=== PATIENT | female | born 1950 | race Caucasian/White ===

== ENCOUNTER 2023-11-27 14:01 | Inpatient (IN) | payer MEDICARE, BC, SELFPAY ==
[2023-11-27] VITALS (10 sets, daily range): BP systolic 93–150; BP diastolic 59–95; BMI 29.0; BMI 27.1
--- NOTE | 2023-11-27 11:12 | ED.GENMED ---
History of Present Illness
General
Chief Complaint: Breathing Problem
Time Seen by Provider: 11/27/23 11:12
Travel History
Have you had any contact with someone who has COVID-19?: No
Do you have any symptoms of coronavirus? Fever > 100 degrees, chills, cough, shortness of breath, sore throat, loss of taste or smell, muscle aches, or headache?: No
History of Present Illness
History of Present Illness:
HPI: The patient presents with shortness of breath. She is chronically on oxygen. Her lung doctor for interstitial lung disease is at [facility] who states that steroids and nebs would not work for her. She has had somewhat of a cough. Her symptoms
worsened with exertion today. She has no significant chest discomfort other than perhaps a tingling sensation. The patient states that she is slowly put on about 3 pounds since last admission. She has a history of PAD but no history of DVT/PE.
EXAM:
GENERAL: The patient is wearing nasal cannula and appears somewhat chronically ill
HEENT: Moist oral mucosa
CARDIOVASCULAR: No murmurs, normal heart rate and rhythm, No chest wall tenderness
PULMONARY: Very mild respiratory distress with only minimal conversational dyspnea on oxygen, diffuse rales heard however when I had the patient get up and walk around she had much more shortness of breath
ABDOMEN: Soft with no peritoneal signs, no tenderness
NEUROLOGIC: Excellent strength all extremities, no coordination deficits
PSYCHIATRIC: Appropriate mental status, normal insight and judgement
EXTREMITIES: Nontender, no edema, moves all extremities equally
SKIN: No rash, no lesions
ED COURSE:
11:40 AM: I initially evaluated patient
NUMBER AND COMPLEXITY OF PROBLEMS ADDRESSED AT THE ENCOUNTER
� Chronic conditions affecting care: CHF, high blood pressure, interstitial lung disease/chronic bronchitis, CKD
� Acute Exacerbation and/or Progression of Chronic Illness: This is a acutely worsened problem on top of chronic disease
� Differential Diagnosis includes: Exacerbation of ILD, exacerbation of heart failure, pneumonia/viral syndrome
AMOUNT AND/OR COMPLEXITY OF DATA TO BE REVIEWED AND ANALYZED
� I performed an independent evaluation of and my interpretation is:
EKG: Sinus 86, normal axis, nonspecific ST abnormality, no significant change from October 14, 2023
CT:
X-rays: I personally viewed x-ray is consistent with ILD
Laboratory Studies: White count slightly elevated 11.5, hemoglobin normal at 12.8, creatinine is 1.2, BNP is 7890, COVID-negative, flu negative, troponin 0.026
Other:
� Review of other/old records: The patient was admitted here just over a month ago. The patient has a history of interstitial lung disease on chronic oxygen (4 L/min during the day and 3 L/min at night). BNP on 10/14/2023 was
8280. I reviewed cardiology notes from 10/17/2023 ([facility])�her notes indicate that the patient was 'seen for syncope and ILD managed at [facility], was diagnosed with heart failure last year, acute on chronic HFpEF, was getting Lasix 40 mg IV daily'
� Clinical information was obtained by an independent historian: Family at bedside
� Prescriptions/Medications Considered but not given:
� Further testing considered but not performed:
RISK OF COMPLICATIONS AND/OR MORBIDITY OR MORTALITY OF PATIENT MANAGEMENT
� Social determinants of health affecting care: Lives at home on chronic oxygen
� Discussion with other providers: Hospitalist for admission at 12:35 PM
� Escalation of care including admission/observation vs risk of discharge considered: The patient does have history of ILD as well as HFpEF. BNP chronically markedly elevated. There is been a 3 pound weight gain since last
admission however there is no significant lower extremity edema. Will try IV diuretic. Family states that the patient has not had much urine output since yesterday. Will hold off on CTA for evaluation of PE as she does have renal insufficiency
chronically with decreased urine output and I did order diuresis here by IV. When I had the patient walk around on 4 L/min of oxygen she desatted to 88%, felt dizzy and had a general unwell appearance.
Phy Exam
Physical Exam
Physical Exam:
See HPI
Scores
Heart Failure Risk
Heart Failure Risk Score: Not Applicable
Course
Orders/Labs/Results
Orders:
Orders
11/27/23 11:18
Electrocardiogram (*1) Urgent
Reason for Study: Shortness of Breath
EKG- Treatment ONCE
11/27/23 11:19
CXR2 [CR Chest - 2 Views ] Urgent
Comment:
Reason For Exam: SOB
11/27/23 11:20
BNP [NT-proBNP] Urgent
Complete Blood Count/With Diff Urgent
Comprehensive Metabolic Panel Urgent
Troponin I Urgent
11/27/23 11:29
COVID-19 Antigen Urgent
Source: Nasal Swab
Influenza A+B Rapid Molecular Urgent
[facility] Source: Nasal Swab
Specimen Description:
11/27/23 12:36
Furosemide [Lasix] 40 mg IV NOW STA
Abnormal Lab Results
11/27/23
11:20
WBC 11.5 H 10^3/uL
(4.8-10.8)
MCH 26.0 L pg
(27.0-31.0)
MCHC 31.8 L g/dL
(33.0-37.0)
RDW 16.2 H %
(11.5-14.5)
MPV 11.3 H fL
(7.4-10.4)
Absolute Neuts (auto) 7.3 H 10^3/uL
(1.4-6.5)
Absolute Monos (auto) 0.9 H 10^3/uL
(0.1-0.6)
Absolute Eos (auto) 1.0 H 10^3/uL
(0-0.7)
Lymphocytes % 19.2 L %
(20.5-51.1)
Eosinophils % 8.7 H %
(0-6)
BUN 21 H mg/dl
(7-17)
Creatinine 1.2 H mg/dL
(0.6-1.0)
Glucose 104 H mg/dl
(70-99)
AST 40 H U/L
(14-36)
11/27/23 11:20
11/27/23 11:20
Vital Signs
Initial and Last Documented VS:
Initial Vital Signs
Pulse Ox
78
11/27/23 11:12
Last Documented Vital Signs
Temp Pulse Resp BP Pulse Ox
97.8 F 96 20 135/79 96
11/27/23 11:13 11/27/23 11:13 11/27/23 11:13 11/27/23 11:13 11/27/23 11:15
*Critical Care Note
Total Time (30-74mins, 75-104mins- exclusive of procedures): Not Applicable
ED Attending Note
-
Portions of this chart may have been created with voice recognition software.� Occasional wrong word or��sound alike� substitutions may have occurred due to the inherent limitations of voice recognition software.
Discharge Plan
Departure
Patient Disposition: Admit
Date of Disposition: 11/27/23
Time of Disposition: 12:36
Presentation/result/management discussed w/ accepting MD/DO: Hospitalist
Discharge Problem:
Interstitial lung disease
Prescriptions:
No Action
atorvastatin 40 mg Tablet
40 mg PO HS
clopidogrel 75 mg Tablet
75 mg PO DAILY@1500
acetaminophen [Tylenol Extra Strength] 500 mg Tablet
1,000 mg PO BIDPRN PRN (Reason: mild pain)
pantoprazole 40 mg Tablet,Delayed Release (Dr/Ec)
40 mg PO BID
albuterol sulfate 90 mcg/actuation Hfa Aerosol Inhaler
2 puff INHALATION R Q6HPRN PRN (Reason: wheezing)
escitalopram oxalate 10 mg Tablet
10 mg PO DAILY@1500
cholecalciferol (vitamin D3) 25 mcg (1,000 unit) Tablet
25 mcg PO DAILY@1500
fluticasone furoate-vilanterol [Breo Ellipta] 100-25 mcg/dose Blister With Device
1 inh INHALATION R DAILY
Ofev 100 mg Capsule
100 mg PO BID
furosemide 20 mg Tablet
40 mg PO DAILY@1500 Qty: 30 1RF
Referrals:
Dequan Boothe DO [Family Provider] -
Interventions
Interventions:
*Risk Screen - Suicide Last Done: 11/27/23 11:14
*General Assessment Last Done: 11/27/23 11:14
*Neglect/Abuse Screening Last Done: 11/27/23 11:14
ED- Fall Risk Assessment Last Done: 11/27/23 11:12
*ED COVID-19 Vaccine History Last Done: 11/27/23 11:14
ED- Cardiac Assessment Last Done: 11/27/23 11:15
ED- Pulmonary Assessment Last Done: 11/27/23 11:15
[2023-11-27 11:35] LABS: % Basophils 0.8 % (0-2); % Eosinophils 8.7 % (0-6); % Immature Granulocytes 0.3 % (0-0.5); % Lymphocytes 19.2 % (20.5-51.1); % Monocytes 7.4 % (1.7-9.3); % Neutrophils 63.6 % (42.2-75.2); Absolute Basophils 0.1 10^3/uL (0-0.2); Absolute Lymphocytes 2.2 10^3/uL (1.2-3.4); Absolute Monocytes 0.9 10^3/uL (0.1-0.6); Absolute Neutrophils 7.3 10^3/uL (1.4-6.5); Hematocrit 40.3 % (37.0-47.0); Hemoglobin 12.8 g/dL (12.0-16.0); Mean Corp Hgb Conc. 31.8 g/dL (33.0-37.0); Mean Corpuscular Volume 81.7 fL (81.0-99.0); Mean Platelet Volume 11.3 fL (7.4-10.4); Nucleated Red Blood Cells % 0 %; Platelet Count 333 10^3/uL (130-400); Red Blood Cell Count 4.93 10^6/uL (4.20-5.40); Red Cell Dist. Width 16.2 % (11.5-14.5); White Blood Cell Count 11.5 10^3/uL (4.8-10.8)
[2023-11-27 11:49] LABS: ALT (SGPT) 23 U/L (0-35); AST (SGOT) 40 U/L (14-36); Alkaline Phosphatase 72 U/L (38-126); Blood Urea Nitrogen 21 mg/dl (7-17); Calcium 9.2 mg/dl (8.4-10.2); Carbon Dioxide 26 mmol/L (22-30); Chloride 99 mmol/L (98-107); Estimated Creatinine Clearance 38 ml/min; Glucose 104 mg/dl (70-99); Potassium 3.5 mmol/L (3.5-5.1); Sodium 135 mmol/L (135-145); Total Bilirubin 1.3 mg/dl (0.2-1.3); Total Protein 6.8 g/dl (6.3-8.2); eGFR 47.21
[2023-11-27 11:52] LABS: COVID-19 Antigen Negative (Negative)
[2023-11-27 11:58] LABS: NT-proBNP 7890 pg/ml; Troponin I 0.026 ng/ml
[2023-11-27] MEDS: LASIX 40 MG IV (13:07)
--- NOTE | 2023-11-27 13:18 | HPS.HSE ---
Family Physician
-
Family Physician: Dequan Boothe
Chief Complaint
-
SOB with exertion
History of Present Illness
73 y/o F hx of chronic HFpEF, Labile HTN, CKD 3a, O2 dependant ILD, PAD, HLD presents to the ER with shortness of breath. Patient reports being discharged from 1 month ago for CHF admission. She initially felt good and was able to ambulate on
3-4L and did not have significant exertional SOB. In the 7 to 10 days, she reports worsening exercise tolerance to the point of significant SOB with minimal activity. She also is using 4-5L consistently. No associated chest pain with exertion, no
palpitations. She reports 1 fever last week attributed to a viral illness which self-resolved. Other complaints include intermittent loose stools, vomiting and heartburn which she attributes to OFEV for ILD.
In ER, patient with significant SOB on exertion, with findings of acute CHF, given IV Lasix x 1. Patient requesting Pulm eval.
Medical History
Past Medical History
Past Medical History: Reports Other (hronic HFpEF, Labile HTN, CKD 3a, O2 dependant ILD, PAD, HLD)
Past Surgical History: Reports Cardiac
Social History
Tobacco: Former Smoker
Alcohol: None
Drug: None
Personal:
Living: With Family
Family History
Family History: CAD and Cancer
Allergies / Home Medications
Allergies reflects when Allergies were last updated in [facility].
Home Medications with original date entered in [facility]
Allergy/Medication List:
Allergies
Allergy/AdvReac Type Severity Reaction Status Date / Time
adhesive tape Allergy Rash Verified 11/27/23 11:05
Sulfa (Sulfonamide Allergy Rash Verified 11/27/23 11:05
Antibiotics)
Home Medications
acetaminophen 500 mg tablet (Tylenol Extra Strength) 1,000 mg PO BIDPRN PRN mild pain 10/14/23
albuterol sulfate 90 mcg/actuation aerosol inhaler 2 puff inhalation R Q6HPRN PRN wheezing 10/14/23
atorvastatin 40 mg tablet 40 mg PO QPM High Cholesterol 10/14/23
cholecalciferol (vitamin D3) 25 mcg (1,000 unit) tablet 25 mcg PO QPM Supplement 10/14/23
clopidogrel 75 mg tablet 75 mg PO QPM Blood Clot Prevention/Tx 10/14/23
escitalopram oxalate 10 mg tablet 10 mg PO QPM Mental Health 10/14/23
fluticasone furoate 100 mcg-vilanterol 25 mcg/dose inhalation powder (Breo Ellipta) 1 inh inhalation R DAILY Lung/Breathing Issues 10/14/23
nintedanib 100 mg capsule (Ofev) 100 mg PO BID Lung/Breathing Issues 10/14/23
pantoprazole 40 mg tablet,delayed release 40 mg PO BID Gastrointestinal Issue 10/14/23
furosemide 20 mg tablet 20 mg PO BID Fluid Retention/Swelling 11/27/23
Review of Systems
-
A 12 point ROS was completed and negative except as noted: Yes
Physical Exam
Vital Signs
Vital Signs
Temp Pulse Resp BP Pulse Ox
97.8 F 99 13 135/79 86
11/27/23 11:13 11/27/23 13:00 11/27/23 13:00 11/27/23 11:13 11/27/23 13:00
Physical Exam
General: No Apparent Distress and Appears Chronically Ill
HEENT: NormoCephalic and Anicteric
Respiratory: Rales; No Wheezes or Rhonchi
Cardiac: S1/S2 and Regular Rhythm
GI: Soft
Musculoskeletal: No Edema
Neuro: AO x 3
Psych: Calm
Laboratory Results
-
11/27/23 11:20
11/27/23 11:20
Laboratory Results
Total Bilirubin 1.3 mg/dl (0.2-1.3) 11/27/23 11:20
AST 40 U/L (14-36) H 11/27/23 11:20
ALT 23 U/L (0-35) 11/27/23 11:20
Alkaline Phosphatase 72 U/L (38-126) 11/27/23 11:20
Troponin I 0.026 ng/ml 11/27/23 11:20
Data Reviewed
-
Lab Data: Labs Reviewed by me
Impression/Plan
-
Assessment:
Acute on chronic hypoxic respiratory failure
- baseline 3-4L, currently on 5L NC
- wean O2 as treatment plan evolves
Acute on chronic HFpEF
- multiple recent admissions
- s/p IV Lasix in ER - requires intensive monitoring
Echo 09/26/23: [place] study, EF 55-60%, aortic sclerosis without stenosis, mild MR, RV moderately dilated and mildly reduced RV systolic function, mild to mod pulmonic regurgitation and mild to mod TR, small localized pericardial effusion without
hemodynamic compromise
- [facility] cardiology consulted
Heartburn intermittent nausea/vomiting in setting of OFEV
- abd exam benign
- continue PPI
- prn Carafate
Hx of Essential HTN, with labile HTN
CKD stage 3a
- monitor Cr as diuresis evolves
ILD - O2 dependant
- on OFEV
- wants to establish care with pulmonary at . consult placed
PAD
HLD
- statin/Plavix
DVT ppx: SC Heparin
Code: Full
--- NOTE | 2023-11-27 13:41 | CM ---
CM reviewed medical records. CM met with patient and in room. Patient confirmed demographics. Patient lives in a single floor ranch style home. with stairs to enter. Patient denies history of VN or SNF. Patient relies on a single point cane
for ambulation outside of the home. Patient has home oxygen through [employer] (formerly [employer]) and has [employer] concentrators for portability. Patient uses [facility] for medication services. Patient is active with her PCP.
Patient would be agree[facility] to [facility]. Referral sent via [facility].
PLAN: Home with VN.
--- NOTE | 2023-11-27 14:46 | CON.CAR ---
Addendum entered and electronically signed by Kelly Stuart MD 11/27/23 16:43:
I saw and examined the patient.
The Barber Tool Sharpener's note was reviewed and I agree with the note.
Comment: Spoke with the patient and her at great length. Although her weight did not go up 3 pounds in 1 day or 5 pounds in a week it is at least 10 pounds increased over the past month overall. She does have some increased sodium in her
diet but they try hard. She is volume overloaded with heart failure with preserved ejection fraction acute on chronic in the setting of interstitial lung disease and mild chronic kidney disease. She is diuresing well with IV Lasix and we will
continue.
-Continue IV diuretic
-Continue to monitor electrolytes and renal function
-Monitor input/output and daily weights. Goal to diurese 10 pounds.
-Check echocardiogram (last at [facility] 09/2023)
-She is agreeable to SGLT2 inhibitor we will look at cost
-No chest pain noted. No prior ischemic assessment.
-Interstitial lung disease per primary service and pulmonary.
-Continue lipid-lowering for PVD.
Original Note:
Consultation
Consultation Request
Date/Time Consultation Requested: 11/27/2023
Date/Time Consultation Performed: 11/27/2023 at 1430
Requesting Provider: Dr. Hamilton
Performing Provider: Dr. Kelly Stuart
Reason for Consultation: CHF
Medical History
-
History of Present Illness:
HPI: Bre is a 73 year old female with PMH of chronic HFpEF, CKD, ILD on chronic O2, PAD, HLD, and PAD who presented to [facility] for evaluation of worsening shortness of breath. She reports a week or so ago she had a viral illness and since that
time, she has noted a slow, steady increase in her SOB and oxygen requirements. She typically is on 3-4L, however has increased to 4-5 L and she has not even been able to walk short distances without becoming short of breath. Her helps her
around the house and they have been eating a lot of heat up meals, however states they use heart healthy meals that are lower in sodium. She also was drinking Powerade, but after speaking to cardiology office, they discontinued this. She reports she
has been following her weight at home and her weight has gone up approximately 10lbs over the past month. Her prior dry weight was 138 lbs and she has now been weighing closer to 148 at home. She states over the past few days she has not had any
significant urine output after taking her usual 20mg of lasix in AM and PM. In ER, she was found to have evidence of acute heart failure on exam and by chest xray and labs. She was started on IV lasix and has had good urine output. She has been
admitted for further management and cardiology consulted for evaluation.
PMH:
Chronic HFpEF
CKD 3a
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
PAD
HTN
Hyperlipidemia
PAD
aorta bypass and fem-pop bypass 05/21/90
aorto-fem bypass and fasciotomy 02/2010
aorto-fem and fem-fem bypass 01/08/13
removal of infected left axillary graft 01/25/13
Chronic Plavix therapy
Past Medical History
Past Medical History: Other (In HPI)
Past Surgical History: Appendectomy, Tonsilectomy and Other (aortic bypass 05/21/90, aorto-femoral bypass 02/2010, fem pop bypass 1989, fasciotomy 2009, aorto-femoral and fem-fem bypass 01/08/13)
Social History
Tobacco: Former Smoker
Alcohol: None
Drug: None
Personal:
Living: With Family
Employment: Retired
Family History
Family History: CAD and Cancer
Allergies / Home Medications
Allergy/AdvReac Type Severity Reaction Status Date / Time
adhesive tape Allergy Rash Verified 11/27/23 11:05
Sulfa (Sulfonamide Allergy Rash Verified 11/27/23 11:05
Antibiotics)
Medication Instructions Recorded Confirmed Type
acetaminophen 500 mg tablet 1,000 mg PO BIDPRN PRN mild pain 10/14/23 11/27/23 History
(Tylenol Extra Strength)
albuterol sulfate 90 mcg/actuation 2 puff inhalation R Q6HPRN PRN 10/14/23 11/27/23 History
aerosol inhaler wheezing
atorvastatin 40 mg tablet 40 mg PO QPM High Cholesterol 10/14/23 11/27/23 History
cholecalciferol (vitamin D3) 25 25 mcg PO QPM Supplement 10/14/23 11/27/23 History
mcg (1,000 unit) tablet
clopidogrel 75 mg tablet 75 mg PO QPM Blood Clot 10/14/23 11/27/23 History
Prevention/Tx
escitalopram oxalate 10 mg tablet 10 mg PO QPM Mental Health 10/14/23 11/27/23 History
fluticasone furoate 100 1 inh inhalation R DAILY 10/14/23 11/27/23 History
mcg-vilanterol 25 mcg/dose Lung/Breathing Issues
inhalation powder (Breo Ellipta)
nintedanib 100 mg capsule (Ofev) 100 mg PO BID Lung/Breathing Issues 10/14/23 11/27/23 History
pantoprazole 40 mg tablet,delayed 40 mg PO BID Gastrointestinal Issue 10/14/23 11/27/23 History
release
furosemide 20 mg tablet 20 mg PO BID Fluid 11/27/23 11/27/23 History
Retention/Swelling
Review of Systems
-
History Source: Patient and Family ( at bedside)
All other systems: Negative unless noted
Physical Exam
Vital Signs
Temp Pulse Resp BP Pulse Ox
97.8 F 85 21 129/81 92
11/27/23 11:13 11/27/23 14:15 11/27/23 14:15 11/27/23 14:00 11/27/23 14:15
Lab Results
11/27/23 11:20
11/27/23 11:20
Troponin I 0.026 ng/ml 11/27/23 11:20
Dfo-A-Jzhcefnvenv Pept 7890 pg/ml 11/27/23 11:20
Physical Exam
General: Well Developed, Well Nourished and No Apparent Distress
HEENT: Normocephalic, Anicteric and Moist Mucous Membranes
Respiratory: Wheezes, Crackles and Non Labored Respirations
Cardiac: S1/S2 and Regular Rhythm
Musculoskeletal: No Clubbing, No Cyanosis and No Edema
Skin: Warm and Dry
Neuro: AO x 3 and Nonfocal/Grossly Intact
Psych: Calm
Impression / Plan
-
PCP: Dequan Boothe at [facility] [phone]
Farm Management Teacher: Dr. Vidal
Impression:
Presented with SOB, weight gain
Acute on chronic HFpEF
CKD 3a
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
PAD
HTN
Hyperlipidemia
PAD
aorta bypass and fem-pop bypass 05/21/90
aorto-fem bypass and fasciotomy 02/2010
aorto-fem and fem-fem bypass 01/08/13
removal of infected left axillary graft 01/25/13
Chronic Plavix therapy
Echo 09/26/23: [facility] study, EF 55-60%, aortic sclerosis without stenosis, mild MR, RV moderately dilated and mildly reduced RV systolic function, mild to mod pulmonic regurgitation and mild to mod TR, small localized pericardial effusion without
hemodynamic compromise
Echo 11/27/2023: study pending
Plan:
-Presented with worsening shortness of breath over the past week with increased O2 requirements.
-Weight at home is up at least 10lbs from prior dry weight of 138lbs.
-Creat up slightly to 1.2, continue to follow with diuresis.
-Follow daily weights, I&Os.
-She has history of labile BPs per her report and previously needed to stop losartan.
-Will ask CM to assess cost of Jard[facility].
-EKG reviewed and stable from prior in SR with HR 86 BPM.
-Troponin detectable at 0.026. No chest pain. Previously patient has declined stress testing.
-Echo 09/26/2023 with preserved EF as noted above. Will repeat while admitted.
-On 4L NC. Chronically on 3-4L. Pulmonology evaluation requested by primary service.
-K 3.5. Replete and check mag.
-Continue plavix and lipitor.
HPI: Bre is a 73 year old female with PMH of chronic HFpEF, CKD, ILD on chronic O2, PAD, HLD, and PAD who presented to [facility] for evaluation of worsening shortness of breath. She reports a week or so ago she had a viral illness and since that
time, she has noted a slow, steady increase in her SOB and oxygen requirements. She typically is on 3-4L, however has increased to 4-5 L and she has not even been able to walk short distances without becoming short of breath. Her helps her
around the house and they have been eating a lot of heat up meals, however states they use heart healthy meals that are lower in sodium. She also was drinking Powerade, but after speaking to cardiology office, they discontinued this. She reports she
has been following her weight at home and her weight has gone up approximately 10lbs over the past month. Her prior dry weight was 138 lbs and she has now been weighing closer to 148 at home. She states over the past few days she has not had any
significant urine output after taking her usual 20mg of lasix in AM and PM. In ER, she was found to have evidence of acute heart failure on exam and by chest xray and labs. She was started on IV lasix and has had good urine output. She has been
admitted for further management and cardiology consulted for evaluation.
Data Reviewed
-
EKG: Tracing Personally Visualized and interpreted
Radiology: Report Reviewed by me
Labs: Labs Reviewed by me
Old Records: Reviewed
--- NOTE | 2023-11-27 14:56 | CON.PUL ---
Consultation
Consultation Request
Date/Time Consultation Requested: 11/27/23
Date/Time Consultation Performed: 11/27/23
Performing Provider: Дмитрий
Reason for Consultation: ILD
Medical History
-
History of Present Illness:
Patient is a 73 year old F with h/o chronic HFpEF, Labile HTN, CKD 3a, O2 dependant ILD, PAD, HLD presents to the ER with shortness of breath. Patient reports being discharged from [facility] 1 month ago for CHF admission. Had been doing well post
discharge but notes change in the past 7-10 days. Reports worsening exercise tolerance and higher O2 requirements, 4-5L consistently. No associated chest pain with exertion, no palpitations.
In ER, patient with significant SOB on exertion, with findings of acute CHF, given IV Lasix x 1. Patient requesting Pulmonary eval. She would like to transition to for her care, previously seen by [facility], not on transplant list. She has
been stable on Ofev and had previously been on lower O2 requirements prior to CHF diagnosis.
Past Medical History
Past Medical History: Other (see list below)
Social History
Tobacco: Non-smoker
Alcohol: None
Drug: None
Family History
Family History: Reviewed & Not Pertinent
Allergies / Home Medications
Allergies
Allergy/AdvReac Type Severity Reaction Status Date / Time
adhesive tape Allergy Rash Verified 11/27/23 11:05
Sulfa (Sulfonamide Allergy Rash Verified 11/27/23 11:05
Antibiotics)
Home Medications
Medication Instructions Recorded Confirmed Last Taken Type
acetaminophen 500 mg tablet 1,000 mg PO BIDPRN PRN mild pain 10/14/23 11/27/23 2 Weeks Ago History
(Tylenol Extra Strength) ~09/30/23
albuterol sulfate 90 mcg/actuation 2 puff inhalation R Q6HPRN PRN 10/14/23 11/27/23 10/13/23 History
aerosol inhaler wheezing
atorvastatin 40 mg tablet 40 mg PO QPM High Cholesterol 10/14/23 11/27/23 11/26/23 History
cholecalciferol (vitamin D3) 25 25 mcg PO QPM Supplement 10/14/23 11/27/23 11/26/23 History
mcg (1,000 unit) tablet
clopidogrel 75 mg tablet 75 mg PO QPM Blood Clot 10/14/23 11/27/23 11/26/23 History
Prevention/Tx
escitalopram oxalate 10 mg tablet 10 mg PO QPM Mental Health 10/14/23 11/27/23 11/26/23 History
fluticasone furoate 100 1 inh inhalation R DAILY 10/14/23 11/27/23 11/27/23 History
mcg-vilanterol 25 mcg/dose Lung/Breathing Issues
inhalation powder (Breo Ellipta)
nintedanib 100 mg capsule (Ofev) 100 mg PO BID Lung/Breathing Issues 10/14/23 11/27/23 11/27/23 History
pantoprazole 40 mg tablet,delayed 40 mg PO BID Gastrointestinal Issue 10/14/23 11/27/23 11/27/23 History
release
furosemide 20 mg tablet 20 mg PO BID Fluid 11/27/23 11/27/23 11/27/23 History
Retention/Swelling
Review of Systems
-
History Source: Patient
All other systems: Negative unless noted
Vitals / Labs / Diagnostic Testing
Vital Signs
Temp Pulse Resp BP Pulse Ox
97.8 F 85 21 129/81 92
11/27/23 11:13 11/27/23 14:15 11/27/23 14:15 11/27/23 14:00 11/27/23 14:15
Lab Data
11/27/23 11:20
11/27/23 11:20
Microbiology
11/27/23 11:29 Nasal Swab Influenza Types A & B (MARY) - Final
Negative for Influenza A & B, NAAT
Negative results must be combined with clinical observations
and patient history.
Nucleic Acid Amplification test (NAAT)performed on the
[employer] ID NOW platform.
Diagnostic Testing:
Physical Exam
-
HEENT: Normocephalic, Anicteric and Moist Mucous Membranes
Cardiovascular: S1/S2 and Regular Rhythm
Respiratory: Rales and Non-Labored Respirations
GI: Soft, Non Distended and Non Tender
Neurology: Awake, Alert, Oriented, AO x 3 and No Motor Deficits
Skin: Warm, Dry and Good Color
General: Comfortable and Other (NAD)
Assessment
-
Patient is a 73 year old F with h/o chronic HFpEF, Labile HTN, CKD 3a, O2 dependant ILD, PAD, HLD presents to the ER with shortness of breath. Patient reports being discharged from [facility] 1 month ago for CHF admission. Had been doing well post
discharge but notes change in the past 7-10 days. Reports worsening exercise tolerance and higher O2 requirements, 4-5L consistently. Adm again for [facility] CHF. Patient requesting Pulmonary eval. She would like to transition to for her care,
previously seen by [facility].
[facility], proBNP 7890
Acute on chronic hypoxic respiratory failure
Mild leukocytosis
NEREYDA, creat 1.2 from 1.0
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
Chronic HFpEF
CKD 3a
PAD
Chronic bronchitis�
IPF�on Of
Home O2 use of 3L
Followed at [facility] prior/not on transplant list
HTN
HLD
Vascular disease� �
[facility]: Bypass� � 2012� �
[facility]: bypass s/p hernia repair complications� � 2009� ��
Plan
Hypoxemia noted on arrival, O2 tod 86%, she is placed on 5L
Baseline use of 3L during day, 2L at night (per records)
Prior history of lung disease is noted including IPF on Ofev/had been following at [facility]
Mild ILD disease noted on imaging, no comparisons
Explained to to bring copy of prior CTs from [facility]
Reviewed [facility] records that are available >50 psgs
Suspect patient has underlying CHF
CXR obtained indicating possible CHF superimposed on chronic ILD changes
Other imaging reports reviewed, consistent with IPF
ECHO reports reviewed indicating new RV dysfunction compared to prior testing in 2021
Agree with diuresis
Await cards recs for management
Will need outpatient pulmonary evaluation in our office for PFTs and 6MWT
Reviewed with patient
Transition care from [facility]
No prior PFTs for review, will request records as OP
We will follow
Diagnostic Data
CXR 11/27/23- IMPRESSION: No acute disease of the chest. Stable findings suggesting mild pulmonary fibrosis. Mild cardiomegaly. Stable
10/14/23- Bilateral interstitial opacities suggesting a chronic interstitial lung disease/pulmonary fibrosis versus mild pulmonary vascular congestion.
ECHO at [facility] 02/2022: LV size is normal, EF 50-55%, mild conc LVH, grade I DD. RV size/func normal. mild diffuse thickening of aortic valve
ECHO 09/26/23: normal function EF 55-60%, grade I DD. w/o stenosis, mild MR, RV moderately dilated with mildly reduced systolic function, RVSP 48. Mild-mod NV, mild-mod TR, RA moderately dilated, small localized pericardial effusion
CT chest 09/25/23 - no acute PE; lungs show chronic changes of fibrosis/honeycombing
-----
TT spent in care for this patient including review of testing/discussion with care team/arranging outpatient FU/extensive review of records = 75mins.
[2023-11-27] MEDS: KCL 40 MEQ PO (15:38)
[2023-11-27 16:57] LABS: Magnesium 1.9 mg/dl (1.6-2.3)
--- NOTE | 2023-11-27 17:04 | PTCARENOTE ---
Received patient from ED via stretcher. Assisted to bed. AAOx3. Assessed and oriented to room. +LIU. at bedside. Call tobar in close reach. Will continue to monitor.
[2023-11-27] MEDS: LIPITOR 40 MG PO (17:33)
[2023-11-27] MEDS: LEXAPRO 10 MG PO (17:33)
[2023-11-27] MEDS: PLAVIX 75 MG PO (17:33)
[2023-11-27] MEDS: SYMBICORT 80/4.5 MCG INHALER 2 PUFF INH (19:07)
[2023-11-27] MEDS: HEPARIN 5000 UNITS SC (20:47)
[2023-11-27] MEDS: NON-FORMULARY ITEM 100 MG PO (20:48)
[2023-11-27] MEDS: PROTONIX 40 MG PO (20:48)
[2023-11-28] VITALS (8 sets, daily range): BP systolic 99–159; BP diastolic 62–98; PULSE 86; O2SAT 90; BMI 27.1
[2023-11-28 06:51] LABS: Hematocrit 35.6 % (37.0-47.0); Hemoglobin 11.5 g/dL (12.0-16.0); Mean Corp Hgb Conc. 32.3 g/dL (33.0-37.0); Mean Corpuscular Hgb 26.3 pg (27.0-31.0); Mean Corpuscular Volume 81.5 fL (81.0-99.0); Mean Platelet Volume 11.1 fL (7.4-10.4); Platelet Count 277 10^3/uL (130-400); Red Blood Cell Count 4.37 10^6/uL (4.20-5.40); Red Cell Dist. Width 16.2 % (11.5-14.5); White Blood Cell Count 9.7 10^3/uL (4.8-10.8)
[2023-11-28 07:18] LABS: Blood Urea Nitrogen 25 mg/dl (7-17); Calcium 9.3 mg/dl (8.4-10.2); Carbon Dioxide 27 mmol/L (22-30); Chloride 99 mmol/L (98-107); Estimated Creatinine Clearance 36 ml/min; Glucose 97 mg/dl (70-99); Potassium 3.5 mmol/L (3.5-5.1); Sodium 137 mmol/L (135-145); eGFR 47.21
[2023-11-28] MEDS: SYMBICORT 80/4.5 MCG INHALER 2 PUFF INH ×2 (07:59→20:11)
[2023-11-28] MEDS: NON-FORMULARY ITEM 100 MG PO ×2 (09:16→20:47)
[2023-11-28] MEDS: PROTONIX 40 MG PO ×2 (09:17→20:47)
[2023-11-28] MEDS: LASIX 40 MG IV (09:18)
[2023-11-28] MEDS: HEPARIN 5000 UNITS SC ×2 (09:18→20:46)
[2023-11-28] MEDS: JARDIANCE 10 MG PO (09:18)
--- NOTE | 2023-11-28 09:34 | W.PN.CARDCBS ---
Addendum entered and electronically signed by Pantera Brooke MD 11/28/23 14:16:
I saw and examined the patient.
The Protocol Officer's note was reviewed and I agree with the note.
Comment:
GEN: No distress, awake, Ox3
HEENT: supple, anicteric, mmm
LUNGS: bilat crackles
CV: Reg, S1/S2, 1/6 syst LSB, S4+
ABD: soft, BS+, NT/ND
EXT: TRace edema
NEURO: Gross non-focal
SKIN: No rash
Plan:
Will give an extra 20 mg of IV Lasix today. Continue 40 mg IV daily. Check echo today.
Craeat 1.2
Starting Jardiance today. Replete potassium.
Continue treatment for interstitial lung disease.
BP has been Very labile.
Original Note:
Today's Communication / Plan
-
Continue IV lasix
Check echo
Start Jardiance
Replete K
Impression / Plan
-
PCP: Dequan Boothe at [facility] [phone]
Staking Technician: Dr. Vidal
Impression:
Presented with SOB, weight gain
Acute on chronic HFpEF
CKD 3a
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
PAD
HTN
Hyperlipidemia
PAD
aorta bypass and fem-pop bypass 05/21/90
aorto-fem bypass and fasciotomy 02/2010
aorto-fem and fem-fem bypass 01/08/13
removal of infected left axillary graft 01/25/13
Chronic Plavix therapy
Echo 09/26/23: [place] study, EF 55-60%, aortic sclerosis without stenosis, mild MR, RV moderately dilated and mildly reduced RV systolic function, mild to mod pulmonic regurgitation and mild to mod TR, small localized pericardial effusion without
hemodynamic compromise
Echo 11/28/2023: Study pending
Plan:
-Presented with worsening shortness of breath over the past week with increased O2 requirements.
-Weight at home was up at least 10lbs from prior dry weight of 138lbs. Weight stable overnight at 148lbs, but negative on I&Os.
-Creat stable at 1.2, continue to follow with diuresis.
-Follow daily weights, I&Os.
-She has history of labile BPs which has limited medical therapy. Previously needed to stop losartan.
-Jardiance 10mg daily started and is affordable at $35/month.
-Echo 09/26/2023 with preserved EF as noted above. Repeat echo pending today.
-On 5L NC. Chronically on 3-4L. Pulmonology following for ILD.
-K 3.5. Replete. Mag 1.9
-Continue plavix and lipitor.
HPI: Bre is a 73 year old female with PMH of chronic HFpEF, CKD, ILD on chronic O2, PAD, HLD, and PAD who presented to [facility] for evaluation of worsening shortness of breath. She reports a week or so ago she had a viral illness and since that
time, she has noted a slow, steady increase in her SOB and oxygen requirements. She typically is on 3-4L, however has increased to 4-5 L and she has not even been able to walk short distances without becoming short of breath. Her helps her
around the house and they have been eating a lot of heat up meals, however states they use heart healthy meals that are lower in sodium. She also was drinking Powerade, but after speaking to cardiology office, they discontinued this. She reports she
has been following her weight at home and her weight has gone up approximately 10lbs over the past month. Her prior dry weight was 138 lbs and she has now been weighing closer to 148 at home. She states over the past few days she has not had any
significant urine output after taking her usual 20mg of lasix in AM and PM. In ER, she was found to have evidence of acute heart failure on exam and by chest xray and labs. She was started on IV lasix and has had good urine output. She has been
admitted for further management and cardiology consulted for evaluation.
Progress Note - Staking Technician
Subjective
Date of Service: November 28, 2023
Breathing stable overnight.
Objective
Labs:
11/28/23 06:31
11/28/23 06:31
Labs
Hgb 11.5 g/dL (12.0-16.0) L 11/28/23 06:31
Hct 35.6 % (37.0-47.0) L 11/28/23 06:31
Plt Count 277 10^3/uL (130-400) 11/28/23 06:31
Sodium 137 mmol/L (135-145) 11/28/23 06:31
Potassium 3.5 mmol/L (3.5-5.1) 11/28/23 06:31
BUN 25 mg/dl (7-17) H 11/28/23 06:31
Creatinine 1.2 mg/dL (0.6-1.0) H 11/28/23 06:31
Glucose 97 mg/dl (70-99) 11/28/23 06:31
Troponins
11/27/23
11:20
Troponin I 0.026
Vital Signs and I&O:
Vital Signs
Temp Pulse Resp BP Pulse Ox
98.4 F 88 16 150/96 92
11/28/23 07:55 11/28/23 08:03 11/28/23 08:03 11/28/23 07:55 11/28/23 08:03
Vital Signs
Temp Pulse Resp BP Pulse Ox
98.4 F 88 16 150/96 92
11/28/23 07:55 11/28/23 08:03 11/28/23 08:03 11/28/23 07:55 11/28/23 08:03
Intake & Output
11/26/23 11/27/23 11/28/23 11/29/23
06:59 06:59 06:59 06:59
Intake Total 240 / 240
Output Total 1050 / 1050
Balance -810 / -810
Physical Exam
Physical Exam
GEN: No distress, awake, alert, oriented x3
HEENT: supple, anicteric, mmm
LUNGS: crackles b/l
CV: Reg, S1/S2, no murmur
ABD: soft, BS+, NT/ND
EXT: No clubbing, cyanosis, or edema
NEURO: Gross non-focal
SKIN: Warm, dry, no rash
--- NOTE | 2023-11-28 11:25 | W.PN.HOSP.TC ---
Today's Communication/Plan
-
continue IV Lasix
Assessment / Plan
Assessment / Plan
Assessment:
Acute on chronic hypoxic respiratory failure
- baseline 3-4L, currently on 5L NC
- wean O2 as treatment plan evolves
Acute on chronic HFpEF
- multiple recent admissions
- continue IV Lasix 40mg daily - requires intensive monitoring
Echo 09/26/23: [place] study, EF 55-60%, aortic sclerosis without stenosis, mild MR, RV moderately dilated and mildly reduced RV systolic function, mild to mod pulmonic regurgitation and mild to mod TR, small localized pericardial effusion without
hemodynamic compromise
- [facility] cardiology following
Heartburn intermittent nausea/vomiting in setting of OFEV
- abd exam benign
- continue PPI
- prn Carafate if recurrence
Hx of Essential HTN, with labile HTN
CKD stage 3a
- monitor Cr as diuresis continues
ILD - O2 dependant
- on OFEV
- [facility] following and pt will transition care to their office, outpatient PFTs planned
PAD
HLD
- statin/Plavix
DVT ppx: SC Heparin
Code: Full
Anticipated Discharge: > 48 hours
Subjective/Interval History
-
Date of Service: November 28, 2023
weight stable but reports feeling improved, less sob and with negative I/Os recorded
Objective Data
-
Labs:
Laboratory Results
11/28/23
06:31
WBC 9.7
Hgb 11.5 L
Hct 35.6 L
Plt Count 277
Sodium 137
Potassium 3.5
Chloride 99
Carbon Dioxide 27
BUN 25 H
Creatinine 1.2 H
Glucose 97
Calcium 9.3
Vital Signs:
Vital Signs
Temp Pulse Resp BP Pulse Ox
98.4 F 88 16 150/96 92
11/28/23 07:55 11/28/23 08:03 11/28/23 08:03 11/28/23 07:55 11/28/23 08:03
I&O
11/27/23 11/28/23 11/29/23
06:59 06:59 06:59
Intake Total 240 / 240
Output Total 1050 / 1050
Balance -810 / -810
Physical Exam
-
General: No Apparent Distress
HEENT: Normocephalic
Respiratory: Rales
Cardiac: Regular Rhythm and S1/S2
GI: Soft
Genito-urinary: No Costovertebral Tender
Neuro: AO x 3
Psych: Calm
Data Reviewed
-
Total Time Spent with Patient (in minutes): 51
Labs: Labs Reviewed by me
--- NOTE | 2023-11-28 11:48 | W.PN.PUL3 ---
Today's Communication / Plan
-
Remains on 5L, baseline use of 3--continue to attempt weaning back to baseline
IV diuresis ongoing per cards, repeat echo pending
Encouraged OOB/IS
Not on steroids, resumed on inhalers
Follow daily weights
Assessment
-
Patient is a 73 year old F with h/o chronic HFpEF, Labile HTN, CKD 3a, O2 dependant ILD, PAD, HLD presents to the ER with shortness of breath. Patient reports being discharged from [facility] 1 month ago for CHF admission. Had been doing well post
discharge but notes change in the past 7-10 days. Reports worsening exercise tolerance and higher O2 requirements, 4-5L consistently. Adm again for [facility] CHF. Patient requesting Pulmonary eval. She would like to transition to for her care,
previously seen by [facility].
[facility], proBNP 7890
Acute on chronic hypoxic respiratory failure
Mild leukocytosis
NEREYDA, creat 1.2 from 1.0
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
Chronic HFpEF
CKD 3a
PAD
Chronic bronchitis�
IPF�on Of
Home O2 use of 3L
Followed at [facility] prior/not on transplant list
HTN
HLD
Vascular disease� �
[facility]: Bypass� � 2012� �
[facility]: bypass s/p hernia repair complications� � 2009� ��
Plan
Hypoxemia noted on arrival, O2 tod 86%, she is placed on 5L
Baseline use of 3L during day, 2L at night (per records)
Prior history of lung disease is noted including IPF on Ofev/had been following at [facility]
Mild ILD disease noted on imaging, no comparisons
Explained to to bring copy of prior CTs from [facility]
Reviewed [facility] records that are available >50 psgs
Suspect patient has underlying CHF
CXR obtained indicating possible CHF superimposed on chronic ILD changes
Other imaging reports reviewed, consistent with IPF
ECHO reports reviewed indicating new RV dysfunction compared to prior testing in 2022
Agree with diuresis
Cards following
Repeat echo pending
Will need outpatient pulmonary evaluation in our office for PFTs and 6MWT
Reviewed with patient
Transition care from [facility]
No prior PFTs for review, will request records as OP
Diagnostic Data
CXR 11/27/23- IMPRESSION: No acute disease of the chest. Stable findings suggesting mild pulmonary fibrosis. Mild cardiomegaly. Stable
10/14/23- Bilateral interstitial opacities suggesting a chronic interstitial lung disease/pulmonary fibrosis versus mild pulmonary vascular congestion.
ECHO at [facility] 02/2022: LV size is normal, EF 50-55%, mild conc LVH, grade I DD. RV size/func normal. mild diffuse thickening of aortic valve
ECHO 09/26/23: normal function EF 55-60%, grade I DD. w/o stenosis, mild MR, RV moderately dilated with mildly reduced systolic function, RVSP 48. Mild-mod [place], mild-mod TR, RA moderately dilated, small localized pericardial effusion
CT chest 09/25/23 - no acute PE; lungs show chronic changes of fibrosis/honeycombing
Subjective Data
-
Date of Service:
Date of Service: November 28, 2023
Chief Complaint: Pulmonary Follow Up
Subjective:
patient seen and examined, remains on 5L NC
Feels no worse, not significantly better
no new complaints
Objective Data
Data Reviewed
Vital Signs / I&O / Oxygen:
Vital Signs
Temp Pulse Resp BP Pulse Ox
98.4 F 88 16 150/96 92
11/28/23 07:55 11/28/23 08:03 11/28/23 08:03 11/28/23 07:55 11/28/23 08:03
Intake and Output
11/27/23 11/28/23 11/29/23
06:59 06:59 06:59
Intake Total 240 / 240
Output Total 1050 / 1050 400 / 400
Balance -810 / -810 -400 / -400
SaO2 92
Nasal Cannula flow liters per 5
minute
Physical Exam
General: Comfortable and Other (NAD)
HEENT: Normocephalic, Anicteric and Moist Mucous Membranes
Cardiovascular: S1-S2 and Regular Rhythm
Respiratory: Crackles (bibasilar) and Non-Labored Respirations
GI: Soft, Non Distended and Non Tender
Neurology: Awake, Alert, Oriented, AO x 3 and No Motor Deficits
Skin: Warm, Dry and Good Color
Labs/Micro/Reports
Lab Data
11/28/23 06:31
11/28/23 06:31
Microbiology
11/27/23 11:29 Nasal Swab Influenza Types A & B (MARY) - Final
Negative for Influenza A & B, NAAT
Negative results must be combined with clinical observations
and patient history.
Nucleic Acid Amplification test (NAAT)performed on the
[employer] ID NOW platform.
[2023-11-28] MEDS: KCL 40 MEQ PO (12:51)
[2023-11-28] MEDS: LASIX 20 MG IV (15:32)
[2023-11-28] MEDS: MIRALAX 17 GRAMS PO (15:32)
--- NOTE | 2023-11-28 17:00 | CM ---
Continue IV Lasix .
On oxygen 5 liters POx 94%.
Jardiance magallon obtained via [facility] orders for $35.00.Pt aware.
Bruce supportive.
Pt has home oxygen with [employer].
PLAN Home with [facility]
[2023-11-28] MEDS: LIPITOR 40 MG PO (17:33)
[2023-11-28] MEDS: LEXAPRO 10 MG PO (17:33)
[2023-11-28] MEDS: PLAVIX 75 MG PO (17:33)
[2023-11-29] VITALS (7 sets, daily range): BP systolic 108–161; BP diastolic 70–91; PULSE 94; O2SAT 94; BMI 26.6
[2023-11-29] MEDS: ZOFRAN 4 MG IV (03:50)
[2023-11-29] MEDS: SYMBICORT 80/4.5 MCG INHALER 2 PUFF INH ×2 (07:30→19:46)
[2023-11-29 08:35] LABS: Hematocrit 35.4 % (37.0-47.0); Hemoglobin 11.2 g/dL (12.0-16.0); Mean Corp Hgb Conc. 31.6 g/dL (33.0-37.0); Mean Corpuscular Hgb 26.2 pg (27.0-31.0); Mean Corpuscular Volume 82.9 fL (81.0-99.0); Mean Platelet Volume 11.6 fL (7.4-10.4); Platelet Count 275 10^3/uL (130-400); Red Blood Cell Count 4.27 10^6/uL (4.20-5.40); Red Cell Dist. Width 16.2 % (11.5-14.5); White Blood Cell Count 10.3 10^3/uL (4.8-10.8)
[2023-11-29] MEDS: HEPARIN 5000 UNITS SC ×2 (08:38→19:53)
[2023-11-29] MEDS: PROTONIX 40 MG PO ×2 (08:39→19:55)
[2023-11-29] MEDS: LASIX 40 MG IV (08:39)
[2023-11-29] MEDS: MIRALAX 17 GRAMS PO (08:39)
[2023-11-29] MEDS: FLUSH (NSS) 2 FLUSH IV (08:40)
[2023-11-29] MEDS: JARDIANCE 10 MG PO (08:47)
--- NOTE | 2023-11-29 08:48 | W.PN.HOSP.TC ---
Today's Communication/Plan
-
continue IV diuresis
add bowel regimen
Assessment / Plan
Assessment / Plan
Assessment:
Acute on chronic hypoxic respiratory failure
- baseline 3-4L, currently on 5L NC
- wean O2 as treatment plan evolves
Acute on chronic HFpEF
- multiple recent admissions
- continue IV Lasix 40mg daily - requires intensive monitoring
Echo 09/26/23: [place] study, EF 55-60%, aortic sclerosis without stenosis, mild MR, RV moderately dilated and mildly reduced RV systolic function, mild to mod pulmonic regurgitation and mild to mod TR, small localized pericardial effusion without
hemodynamic compromise
- [facility]ology following
Heartburn intermittent nausea/vomiting in setting of OFEV
- abd exam benign
- continue PPI
- prn Carafate if recurrence
Hx of Essential HTN, with labile HTN
CKD stage 3a
- monitor Cr as diuresis continues
ILD - O2 dependant
- on OFEV
- [facility] following and pt will transition care to their office, outpatient PFTs planned
PAD
HLD
- statin/Plavix
Constipation
- Miralax, Senna/Colace
DVT ppx: SC Heparin
Code: Full
Anticipated Discharge: > 48 hours
Subjective/Interval History
-
Date of Service: November 29, 2023
requesting more bowel meds for lack of BM since Friday
Objective Data
-
Labs:
Laboratory Results
11/29/23
08:18
WBC 10.3
Hgb 11.2 L
Hct 35.4 L
Plt Count 275
Sodium Pending
Potassium Pending
Chloride Pending
Carbon Dioxide Pending
BUN Pending
Creatinine Pending
Glucose Pending
Calcium Pending
Vital Signs:
Vital Signs
Temp Pulse Resp BP Pulse Ox
97.9 F 93 18 108/72 92
11/29/23 08:00 11/29/23 08:39 11/29/23 08:00 11/29/23 08:39 11/29/23 08:00
I&O
11/28/23 11/29/23 11/30/23
06:59 06:59 06:59
Intake Total 240 / 240 1020 / 1020
Output Total 1050 / 1050 2200 / 2200 550 / 550
Balance -810 / -810 -1180 / -1180 -550 / -550
Physical Exam
-
General: No Apparent Distress
HEENT: Normocephalic and Atraumatic
Respiratory: Rales
Cardiac: Regular Rhythm and S1/S2
GI: Soft and Nontender
Neuro: AO x 3
Psych: Calm
Data Reviewed
-
Total Time Spent with Patient (in minutes): 45
Labs: Labs Reviewed by me
[2023-11-29 08:57] LABS: Blood Urea Nitrogen 27 mg/dl (7-17); Calcium 9.2 mg/dl (8.4-10.2); Carbon Dioxide 28 mmol/L (22-30); Chloride 98 mmol/L (98-107); Estimated Creatinine Clearance 33 ml/min; Glucose 100 mg/dl (70-99); Potassium 3.7 mmol/L (3.5-5.1); Sodium 136 mmol/L (135-145); eGFR 42.88
--- NOTE | 2023-11-29 09:22 | W.PN.CARDCBS ---
Addendum entered and electronically signed by Julio Stuart MD 11/29/23 11:19:
Patient seen, interviewed and examined by me.
Sitting in chair, using nasal cannula oxygen, no acute distress at rest
Regular rate and rhythm with normal S1 and S2, no S3 no S4. There is a grade 1/6 apical holosystolic murmur and no rubs. There is RV lift.
Lungs are clear to auscultation bilaterally without wheezes rales or rhonchi.
Abdomen soft nontender nondistended with normoactive bowel sounds
Extremities show trace pretibial edema bilaterally no clubbing or cyanosis.
Neurologic exam is grossly nonfocal.
Agree with advanced practice professionals assessment and plan as noted below
-Continue diuresis.
Weight is down 3 pounds overnight
Creatinine is essentially at her recent baseline.
Discussed with patient and her who is at the bedside. Her most recent echocardiogram is reviewed with her as well.
Original Note:
Today's Communication / Plan
-
Continue diuresis with IV lasix
Follow renal function
Wean O2 to baseline as able.
Impression / Plan
-
PCP: Dequan Boothe at [facility] [phone]
Continuity Editor: Dr. Vidal
Impression:
Presented with SOB, weight gain
Acute on chronic HFpEF
CKD 3a
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
PAD
HTN
Hyperlipidemia
PAD
aorta bypass and fem-pop bypass 05/21/90
aorto-fem bypass and fasciotomy 02/2010
aorto-fem and fem-fem bypass 01/08/13
removal of infected left axillary graft 01/25/13
Chronic Plavix therapy
Echo 09/26/23: [place] study, EF 55-60%, aortic sclerosis without stenosis, mild MR, RV moderately dilated and mildly reduced RV systolic function, mild to mod pulmonic regurgitation and mild to mod TR, small localized pericardial effusion without
hemodynamic compromise
Echo 11/28/2023: EF 55%, mild cLVH, flattened septum in systole and diastole consistent with RV pressure and volume overload, stage II diastolic dysfunction, mild MR, aortic sclerosis without stenosis, mild TR, estimated PAP 35-40 mmHg, small to
moderate pericardial effusion located predominantly around the inferolateral wall with no evidence of chamber collapse.
Plan:
-Presented with worsening shortness of breath over the past week with increased O2 requirements.
-Continue diuresing with IV lasix 40mg daily. Weight down 3lbs overnight to 145lbs. Prior dry weight 138lbs.
-Creat stable at 1.3, continue to follow with diuresis.
-Follow daily weights, I&Os.
-She has history of labile BPs which has limited medical therapy. Previously needed to stop losartan.
-Jardiance 10mg daily started and is affordable at $35/month.
-Echo 11/28/2023 showed EF was preserved with evidence of volume overload, small to moderate pericardial effusion noted.
-On 5L NC. Chronically on 3-4L. Pulmonology following for ILD.
-Continue plavix and lipitor.
HPI: Bre is a 73 year old female with PMH of chronic HFpEF, CKD, ILD on chronic O2, PAD, HLD, and PAD who presented to [facility] for evaluation of worsening shortness of breath. She reports a week or so ago she had a viral illness and since that
time, she has noted a slow, steady increase in her SOB and oxygen requirements. She typically is on 3-4L, however has increased to 4-5 L and she has not even been able to walk short distances without becoming short of breath. Her helps her
around the house and they have been eating a lot of heat up meals, however states they use heart healthy meals that are lower in sodium. She also was drinking Powerade, but after speaking to cardiology office, they discontinued this. She reports she
has been following her weight at home and her weight has gone up approximately 10lbs over the past month. Her prior dry weight was 138 lbs and she has now been weighing closer to 148 at home. She states over the past few days she has not had any
significant urine output after taking her usual 20mg of lasix in AM and PM. In ER, she was found to have evidence of acute heart failure on exam and by chest xray and labs. She was started on IV lasix and has had good urine output. She has been
admitted for further management and cardiology consulted for evaluation.
Progress Note - Continuity Editor
Subjective
Date of Service: November 29, 2023
Breathing feels better. Remains on 5L
Objective
Labs:
11/29/23 08:18
11/29/23 08:18
Labs
Hgb 11.2 g/dL (12.0-16.0) L 11/29/23 08:18
Hct 35.4 % (37.0-47.0) L 11/29/23 08:18
Plt Count 275 10^3/uL (130-400) 11/29/23 08:18
Sodium 136 mmol/L (135-145) 11/29/23 08:18
Potassium 3.7 mmol/L (3.5-5.1) 11/29/23 08:18
BUN 27 mg/dl (7-17) H 11/29/23 08:18
Creatinine 1.3 mg/dL (0.6-1.0) H 11/29/23 08:18
Glucose 100 mg/dl (70-99) H 11/29/23 08:18
Troponins
11/27/23
11:20
Troponin I 0.026
Vital Signs and I&O:
Vital Signs
Temp Pulse Resp BP Pulse Ox
97.9 F 93 18 108/72 92
11/29/23 08:00 11/29/23 08:39 11/29/23 08:00 11/29/23 08:39 11/29/23 08:00
Vital Signs
Temp Pulse Resp BP Pulse Ox
97.9 F 93 18 108/72 92
11/29/23 08:00 11/29/23 08:39 11/29/23 08:00 11/29/23 08:39 11/29/23 08:00
Intake & Output
11/27/23 11/28/23 11/29/23 11/30/23
06:59 06:59 06:59 06:59
Intake Total 240 / 240 1020 / 1020
Output Total 1050 / 1050 2200 / 2200 550 / 550
Balance -810 / -810 -1180 / -1180 -550 / -550
Physical Exam
Physical Exam
GEN: No distress, awake, alert, oriented x3
HEENT: supple, anicteric, mmm
LUNGS: crackles b/l
CV: Reg, S1/S2, no murmur
ABD: soft, BS+, NT/ND
EXT: No clubbing, cyanosis, or edema
NEURO: Gross non-focal
SKIN: Warm, dry, no rash
[2023-11-29] MEDS: SENOKOT-S 1 TABLET PO ×2 (11:10→19:55)
[2023-11-29] MEDS: NON-FORMULARY ITEM 100 MG PO ×2 (11:10→19:54)
--- NOTE | 2023-11-29 16:25 | W.PN.PUL3 ---
Today's Communication / Plan
-
O2
IV diuresis
Encouraged OOB/IS
Follow daily weights
Assessment
-
Patient is a 73 year old F with h/o chronic HFpEF, Labile HTN, CKD 3a, O2 dependant ILD, PAD, HLD presents to the ER with shortness of breath. Patient reports being discharged from [facility] 1 month ago for CHF admission. Had been doing well post
discharge but notes change in the past 7-10 days. Reports worsening exercise tolerance and higher O2 requirements, 4-5L consistently. Adm again for [facility] CHF. Patient requesting Pulmonary eval. She would like to transition to for her care,
previously seen by [facility].
[facility] CHF, proBNP [id number]
Acute on chronic hypoxic respiratory failure
Mild leukocytosis
NEREYDA
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
Chronic HFpEF
CKD 3a
PAD
Chronic bronchitis�
IPF�on
Home O2 use of 3L
Followed at [facility] prior/not on transplant list
HTN
HLD
Vascular disease� �
[facility]: Bypass� � 2012� �
[facility]: bypass s/p hernia repair complications� � 2009� ��
Plan
Hypoxemia noted on arrival, O2 tod 86%, she was placed on 5L
Baseline use of 3L during day, 2L at night (per records)
Prior history of lung disease is noted including IPF on /had been following at [facility]
Mild ILD disease noted on imaging, no comparisons
Explained to to bring copy of prior CTs from [facility]
Reviewed [facility] records that are available >50 psgs
Suspect patient has underlying CHF
CXR obtained indicating possible CHF superimposed on chronic ILD changes
Other imaging reports reviewed, consistent with IPF
Repeat CXR tomorrow
ECHO reports reviewed indicating new RV dysfunction compared to prior testing in 2021
Agree with diuresis
Cards following
Repeat TTE shows flattened septum in systole and diastole consistent with RV �pressure and volume overload --> diurese
Will need outpatient pulmonary evaluation in our office for PFTs and 6MWT
Reviewed with patient
Transition care from [facility]
No prior PFTs for review, will request records as OP
Diagnostic Data
CXR 11/27/23- IMPRESSION: No acute disease of the chest. Stable findings suggesting mild pulmonary fibrosis. Mild cardiomegaly. Stable
10/14/23- Bilateral interstitial opacities suggesting a chronic interstitial lung disease/pulmonary fibrosis versus mild pulmonary vascular congestion.
ECHO at [facility] 02/2022: LV size is normal, EF 50-55%, mild conc LVH, grade I DD. RV size/func normal. mild diffuse thickening of aortic valve
ECHO 09/26/23: normal function EF 55-60%, grade I DD. w/o stenosis, mild MR, RV moderately dilated with mildly reduced systolic function, RVSP 48. Mild-mod ME, mild-mod TR, RA moderately dilated, small localized pericardial effusion
CT chest 09/25/23 - no acute PE; lungs show chronic changes of fibrosis/honeycombing
Subjective Data
-
Date of Service:
Date of Service: November 29, 2023
Chief Complaint: Pulmonary Follow Up
Subjective:
Seen this afternoon. On 4L/min NC. Feels ok, no worsening SOB. No acute events reported from overnight.
Review of Systems
General: Other (negative unless mentioned above)
Objective Data
Data Reviewed
Vital Signs / I&O / Oxygen:
Vital Signs
Temp Pulse Resp BP Pulse Ox
97.4 F 75 18 118/71 94
11/29/23 15:15 11/29/23 15:15 11/29/23 15:15 11/29/23 15:15 11/29/23 15:15
Intake and Output
11/28/23 11/29/23 11/30/23
06:59 06:59 06:59
Intake Total 240 / 240 1020 / 1020
Output Total 1050 / 1050 2200 / 2200 550 / 550
Balance -810 / -810 -1180 / -1180 -550 / -550
SaO2 94
Nasal Cannula flow liters per 4
minute
Physical Exam
General: Comfortable and Other (NAD)
HEENT: Normocephalic, Anicteric and Moist Mucous Membranes
Cardiovascular: S1-S2 and Peripheral Edema (negative)
Respiratory: Crackles (bibasilar), Rhonchi (negative), Non-Labored Respirations and Stridor (negative)
GI: Soft, Non Distended, Non Tender and Normal Bowel Sounds
Neurology: AO x 3 and No Motor Deficits
Skin: Warm, Dry and Good Color
Labs/Micro/Reports
Lab Data
11/29/23 08:18
11/29/23 08:18
Microbiology
11/27/23 11:29 Nasal Swab Influenza Types A & B (MARY) - Final
Negative for Influenza A & B, NAAT
Negative results must be combined with clinical observations
and patient history.
Nucleic Acid Amplification test (NAAT)performed on the
[employer] platform.
[2023-11-29] MEDS: PLAVIX 75 MG PO (17:48)
[2023-11-29] MEDS: LEXAPRO 10 MG PO (17:48)
[2023-11-29] MEDS: LIPITOR 40 MG PO (17:48)
[2023-11-29] MEDS: DULCOLAX 10 MG RECTAL (22:02)
[2023-11-29] MEDS: MYLICON 80 MG PO (22:02)
[2023-11-30 03:55] VITALS: BP 133/88
[2023-11-30 06:00] VITALS: BMI 26.2
[2023-11-30 06:22] LABS: Hematocrit 39.1 % (37.0-47.0); Hemoglobin 12.2 g/dL (12.0-16.0); Mean Corp Hgb Conc. 31.2 g/dL (33.0-37.0); Mean Corpuscular Hgb 26.3 pg (27.0-31.0); Mean Corpuscular Volume 84.3 fL (81.0-99.0); Mean Platelet Volume 11.2 fL (7.4-10.4); Platelet Count 281 10^3/uL (130-400); Red Blood Cell Count 4.64 10^6/uL (4.20-5.40); Red Cell Dist. Width 16.1 % (11.5-14.5); White Blood Cell Count 10.9 10^3/uL (4.8-10.8)
[2023-11-30 06:41] LABS: Blood Urea Nitrogen 25 mg/dl (7-17); Calcium 9.4 mg/dl (8.4-10.2); Carbon Dioxide 30 mmol/L (22-30); Chloride 94 mmol/L (98-107); Estimated Creatinine Clearance 33 ml/min; Glucose 99 mg/dl (70-99); Magnesium 1.9 mg/dl (1.6-2.3); Potassium 3.8 mmol/L (3.5-5.1); Sodium 134 mmol/L (135-145); eGFR 42.88
[2023-11-30 07:51] VITALS: BP 139/88
--- NOTE | 2023-11-30 09:05 | W.PN.HOSP.TC ---
Today's Communication/Plan
-
continue diuresis
repeat CXR today
explore if SNF is possible with CM assistance
Assessment / Plan
Assessment / Plan
Assessment:
Acute on chronic hypoxic respiratory failure
- baseline 3-4L, currently on 4L NC
- wean O2 as treatment plan evolves
Acute on chronic HFpEF
- multiple recent admissions
- continue IV Lasix 40mg daily - requires intensive monitoring
Echo 09/26/23: [place] study, EF 55-60%, aortic sclerosis without stenosis, mild MR, RV moderately dilated and mildly reduced RV systolic function, mild to mod pulmonic regurgitation and mild to mod TR, small localized pericardial effusion without
hemodynamic compromise
- [facility] cardiology following
Heartburn intermittent nausea/vomiting in setting of OFEV
- abd exam benign
- continue PPI
- prn Carafate if recurrence
Hx of Essential HTN, with labile HTN
CKD stage 3a
- monitor Cr as diuresis continues
ILD - O2 dependant
- on OFEV
- [facility]monary following and pt will transition care to their office, outpatient PFTs planned
PAD
HLD
- statin/Plavix
Constipation
- Miralax, Senna/Colace; large BM 11/29
DVT ppx: SC Heparin
Code: Full
Anticipated Discharge: 24 - 48 hours
Subjective/Interval History
-
Date of Service: November 30, 2023
large BM overnight
weight down another 2 pounds
on 3-4 L at rest which is baseline
still SOB/hypoxic with exertion with sats to mid 80s - pt/family agreeable to SNF if indicated
Objective Data
-
Labs:
Laboratory Results
11/30/23
05:43
WBC 10.9 H
Hgb 12.2
Hct 39.1
Plt Count 281
Sodium 134 L
Potassium 3.8
Chloride 94 L
Carbon Dioxide 30
BUN 25 H
Creatinine 1.3 H
Glucose 99
Calcium 9.4
Vital Signs:
Vital Signs
Temp Pulse Resp BP Pulse Ox
97.9 F 83 18 139/88 93
11/30/23 07:51 11/30/23 07:51 11/30/23 07:51 11/30/23 07:51 11/30/23 07:51
I&O
11/29/23 11/30/23 12/01/23
06:59 06:59 06:59
Intake Total 1020 / 1020 480 / 480 480 / 480
Output Total 2200 / 2200 1850 / 1850 200 / 200
Balance -1180 / -1180 -1370 / -1370 280 / 280
Physical Exam
-
General: No Apparent Distress
HEENT: Normocephalic and Atraumatic
Respiratory: Negative Wheezes or Rales
Cardiac: Regular Rhythm and S1/S2
GI: Soft
Musculoskeletal: No Edema
Neuro: AO x 3
Hematologic / Lymphatic: No Lymphadenopathy
Psych: Calm
Data Reviewed
-
Total Time Spent with Patient (in minutes): 51
Labs: Labs Reviewed by me
[2023-11-30] MEDS: SYMBICORT 80/4.5 MCG INHALER 2 PUFF INH ×2 (09:17→19:23)
--- NOTE | 2023-11-30 09:44 | CM ---
CM following re: d/c planning
Chart reviewed
Pt discharge not anticipated for another few days
Referrals placed for SNF at the patient's spouse's request : [facility], [facility], [facility], & [facility]
Pt is currently set up with [facility] care provided by [facility] however she'd likely benefit from short term rehab for continued strength & endurance support
Pt is a fall risk when she becomes hypoxic and at times has close call syncopal episodes
Pt is followed by pulm and O2 needs are at 4L
CM will continue to monitor patient progress and update record with responses from referrals placed via care port
PLAN; d/c to SNF vs home with VN
[2023-11-30] MEDS: PROTONIX 40 MG PO ×2 (10:01→21:48)
[2023-11-30] MEDS: HEPARIN 5000 UNITS SC ×2 (10:01→21:46)
[2023-11-30] MEDS: FLUSH (NSS) 2 FLUSH IV (10:02)
[2023-11-30] MEDS: MIRALAX PO (10:02)
[2023-11-30] MEDS: NON-FORMULARY ITEM 100 MG PO ×2 (10:02→21:48)
[2023-11-30] MEDS: LASIX 40 MG IV (10:02)
[2023-11-30] MEDS: SENOKOT-S PO ×2 (10:02→21:48)
[2023-11-30] MEDS: JARDIANCE 10 MG PO (10:06)
--- NOTE | 2023-11-30 10:30 | W.PN.CARDCBS ---
Today's Communication / Plan
-
Continue IV Lasix at current dose today as she is approaching her dry weight of approximately 138 pounds.
Of note, when switching from IV to oral Lasix which should happen within the next 24 hours or so she had been on 20 mg p.o. twice daily as an outpatient but I think she would get a better diuretic response moving towards 40 mg p.o. once daily as an
outpatient.
Impression / Plan
-
PCP: Dequan Boothe at [facility] [phone]
Daytime Caregiver: Dr. Vidal
Impression:
Presented with SOB, weight gain
Acute on chronic HFpEF
CKD 3a
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
PAD
HTN
Hyperlipidemia
PAD
aorta bypass and fem-pop bypass 05/21/90
aorto-fem bypass and fasciotomy 02/2010
aorto-fem and fem-fem bypass 01/08/13
removal of infected left axillary graft 01/25/13
Chronic Plavix therapy
Echo 09/26/23: [place] study, EF 55-60%, aortic sclerosis without stenosis, mild MR, RV moderately dilated and mildly reduced RV systolic function, mild to mod pulmonic regurgitation and mild to mod TR, small localized pericardial effusion without
hemodynamic compromise
Echo 11/28/2023: EF 55%, mild cLVH, flattened septum in systole and diastole consistent with RV pressure and volume overload, stage II diastolic dysfunction, mild MR, aortic sclerosis without stenosis, mild TR, estimated PAP 35-40 mmHg, small to
moderate pericardial effusion located predominantly around the inferolateral wall with no evidence of chamber collapse.
Plan:
-Presented with worsening shortness of breath over the past week with increased O2 requirements.
-Continue diuresing with IV lasix 40mg daily. Weight down 2lbs overnight to 143lbs (Down approx 5 lbs since adm). Prior dry weight 138lbs.
-Creat stable at 1.3, continue to follow with diuresis.
-Follow daily weights, I&Os.
-She has history of labile BPs which has limited medical therapy. Previously needed to stop losartan.
-Jardiance 10mg daily started and is affordable at $35/month.
-Echo 11/28/2023 showed EF was preserved with evidence of volume overload, small to moderate pericardial effusion noted.
-On 5L NC. Chronically on 3-4L. Pulmonology following for ILD.
-Continue plavix and lipitor.
HPI: Bre is a 73 year old female with PMH of chronic HFpEF, CKD, ILD on chronic O2, PAD, HLD, and PAD who presented to [facility] for evaluation of worsening shortness of breath. She reports a week or so ago she had a viral illness and since that
time, she has noted a slow, steady increase in her SOB and oxygen requirements. She typically is on 3-4L, however has increased to 4-5 L and she has not even been able to walk short distances without becoming short of breath. Her helps her
around the house and they have been eating a lot of heat up meals, however states they use heart healthy meals that are lower in sodium. She also was drinking Powerade, but after speaking to cardiology office, they discontinued this. She reports she
has been following her weight at home and her weight has gone up approximately 10lbs over the past month. Her prior dry weight was 138 lbs and she has now been weighing closer to 148 at home. She states over the past few days she has not had any
significant urine output after taking her usual 20mg of lasix in AM and PM. In ER, she was found to have evidence of acute heart failure on exam and by chest xray and labs. She was started on IV lasix and has had good urine output. She has been
admitted for further management and cardiology consulted for evaluation.
Progress Note - Daytime Caregiver
Subjective
Date of Service: November 30, 2023
Less short of breath. No chest pain.
Total Time Spent with Patient (in minutes): 52
Objective
Labs:
11/30/23 05:43
11/30/23 05:43
Labs
Hgb 12.2 g/dL (12.0-16.0) 11/30/23 05:43
Hct 39.1 % (37.0-47.0) 11/30/23 05:43
Plt Count 281 10^3/uL (130-400) 11/30/23 05:43
Sodium 134 mmol/L (135-145) L 11/30/23 05:43
Potassium 3.8 mmol/L (3.5-5.1) 11/30/23 05:43
BUN 25 mg/dl (7-17) H 11/30/23 05:43
Creatinine 1.3 mg/dL (0.6-1.0) H 11/30/23 05:43
Glucose 99 mg/dl (70-99) 11/30/23 05:43
Troponins
11/27/23
11:20
Troponin I 0.026
Vital Signs and I&O:
Vital Signs
Temp Pulse Resp BP Pulse Ox
97.9 F 83 18 139/88 93
11/30/23 07:51 11/30/23 10:02 11/30/23 07:51 11/30/23 10:02 11/30/23 07:51
Vital Signs
Temp Pulse Resp BP Pulse Ox
97.9 F 83 18 139/88 93
11/30/23 07:51 11/30/23 10:02 11/30/23 07:51 11/30/23 10:02 11/30/23 07:51
Intake & Output
11/28/23 11/29/23 11/30/23 12/01/23
06:59 06:59 06:59 06:59
Intake Total 240 / 240 1020 / 1020 480 / 480 480 / 480
Output Total 1050 / 1050 2200 / 2200 1850 / 1850 200 / 200
Balance -810 / -810 -1180 / -1180 -1370 / -1370 280 / 280
Physical Exam
Physical Exam
GEN: No distress, awake, alert, oriented x3
HEENT: supple, anicteric, mmm
LUNGS: crackles b/l
CV: Reg, S1/S2, grade 1/6 apical holosystolic murmur and no rubs.
ABD: soft, BS+, NT/ND
EXT: No clubbing, cyanosis, or edema
NEURO: Gross non-focal
SKIN: Warm, dry, no rash
[2023-11-30] MEDS: ZOFRAN 4 MG IV (11:10)
[2023-11-30 12:33] VITALS: BP 143/85
--- NOTE | 2023-11-30 12:45 | W.PN.PUL3 ---
Today's Communication / Plan
-
O2
IV diuresis
Encouraged OOB/IS
Follow daily weights
Assessment
-
Patient is a 73 year old F with h/o chronic HFpEF, Labile HTN, CKD 3a, O2 dependant ILD, PAD, HLD presents to the ER with shortness of breath. Patient reports being discharged from [facility] 1 month ago for CHF admission. Had been doing well post
discharge but notes change in the past 7-10 days. Reports worsening exercise tolerance and higher O2 requirements, 4-5L consistently. Adm again for [facility] CHF. Patient requesting Pulmonary eval. She would like to transition to for her care,
previously seen by [facility].
[facility]F, proBNP 7890
Acute on chronic hypoxic respiratory failure
Mild leukocytosis
NEREYDA
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
Chronic HFpEF
CKD 3a
PAD
Chronic bronchitis�
IPF�on
Home O2 use of 3L
Followed at [facility] prior/not on transplant list
HTN
HLD
Vascular disease� �
[facility]: Bypass� � 2012� �
[facility]: bypass s/p hernia repair complications� � 2009� ��
Plan
Hypoxemia noted on arrival, O2 tod 86%, she was placed on 5L
Baseline use of 3L during day, 2L at night (per records)
Prior history of lung disease is noted including IPF on /had been following at [facility]
Mild ILD disease noted on imaging, no comparisons
Explained to to bring copy of prior CTs from [facility]
Reviewed [facility] records that are available >50 psgs
Suspect patient has underlying CHF
CXR obtained indicating possible CHF superimposed on chronic ILD changes
Other imaging reports reviewed, consistent with IPF
Repeat CXR done today shows similar findings compared to prior from 11/27 with chronic interstitial changes and retrocardiac opacification
ECHO reports reviewed indicating new RV dysfunction compared to prior testing in 2021
Agree with diuresis
Cards following
Repeat TTE shows flattened septum in systole and diastole consistent with RV �pressure and volume overload --> diurese
Will need outpatient pulmonary evaluation in our office for PFTs and 6MWT
Reviewed with patient
Transition care from [facility]
No prior PFTs for review, will request records as OP
Pulmonary service will continue to follow along
Diagnostic Data
CXR 11-28-2023: Stable exam. Findings most consistent with chronic pulmonary fibrosis; Cardiomegaly
CXR 11/27/23- IMPRESSION: No acute disease of the chest. Stable findings suggesting mild pulmonary fibrosis. Mild cardiomegaly. Stable
10/14/23- Bilateral interstitial opacities suggesting a chronic interstitial lung disease/pulmonary fibrosis versus mild pulmonary vascular congestion.
ECHO at [facility] 02/2022: LV size is normal, EF 50-55%, mild conc LVH, grade I DD. RV size/func normal. mild diffuse thickening of aortic valve
ECHO 09/26/23: normal function EF 55-60%, grade I DD. w/o stenosis, mild MR, RV moderately dilated with mildly reduced systolic function, RVSP 48. Mild-mod DC, mild-mod TR, RA moderately dilated, small localized pericardial effusion
CT chest 09/25/23 - no acute PE; lungs show chronic changes of fibrosis/honeycombing
Subjective Data
-
Date of Service:
Date of Service: November 30, 2023
Chief Complaint: Pulmonary Follow Up
Subjective:
Patient seen today. at bedside. No acute events per overnight. Patient on 4 L/min saturating 93%. She denies chest pain, headache, fevers or chills.
Review of Systems
General: Other (Negative unless mentioned above)
Objective Data
Data Reviewed
Vital Signs / I&O / Oxygen:
Vital Signs
Temp Pulse Resp BP Pulse Ox
97.5 F 90 18 143/85 93
11/30/23 12:33 11/30/23 12:33 11/30/23 12:33 11/30/23 12:33 11/30/23 09:00
Intake and Output
11/29/23 11/30/23 12/01/23
06:59 06:59 06:59
Intake Total 1020 / 1020 480 / 480 480 / 480
Output Total 2200 / 2200 1850 / 1850 200 / 200
Balance -1180 / -1180 -1370 / -1370 280 / 280
SaO2 93
Nasal Cannula flow liters per 4
minute
Physical Exam
General: Comfortable and Other (NAD)
HEENT: Normocephalic, Anicteric and Moist Mucous Membranes
Cardiovascular: S1-S2 and Peripheral Edema (negative)
Respiratory: Wheeze (Negative), Crackles (Bilateral (more wet the left mid-lung)), Rhonchi (negative), Non-Labored Respirations and Stridor (negative)
GI: Soft, Non Distended, Non Tender and Normal Bowel Sounds
Neurology: AO x 3 and No Motor Deficits
Skin: Warm, Dry and Good Color
Labs/Micro/Reports
Lab Data
11/30/23 05:43
11/30/23 05:43
Microbiology
11/27/23 11:29 Nasal Swab Influenza Types A & B (MARY) - Final
Negative for Influenza A & B, NAAT
Negative results must be combined with clinical observations
and patient history.
Nucleic Acid Amplification test (NAAT)performed on the
[employer] platform.
[2023-11-30 15:17] VITALS: BP 144/91
[2023-11-30] MEDS: LIPITOR 40 MG PO (18:23)
[2023-11-30] MEDS: LEXAPRO 10 MG PO (18:23)
[2023-11-30] MEDS: PLAVIX 75 MG PO (18:23)
[2023-11-30 22:57] VITALS: BP 123/79
[2023-12-01 06:00] VITALS: BMI 25.9
[2023-12-01 07:00] VITALS: BP 133/81
[2023-12-01] MEDS: SYMBICORT 80/4.5 MCG INHALER 2 PUFF INH ×2 (07:43→20:44)
--- NOTE | 2023-12-01 08:44 | W.PN.CARDCBS ---
Addendum entered and electronically signed by Shay Craven MD 12/01/23 12:36:
I saw and examined the patient.
The INVESTMENT TRADER or PA's note was reviewed and I agree with the note.
Comment: General: Well developed, well nourished in NAD.
Neck: Supple, no JVD, HJR, carotids +2 B/L, no bruits bilaterally.
Heart: Non displaced PMI, RRR, no murmurs, No S3, S4, no rubs.
Lungs: Scattered rhonchi
Extremities: No clubbing, cyanosis or edema bilaterally.
Neuro: Grossly nonfocal, awake, alert and oriented x3.
Continue IV Lasix for 24 hours and consider change to oral Lasix
Weight is 141 pounds on 12/01 patient reports dry weight of 138 pounds
Discussed with primary service
USP facility placement appropriate
Original Note:
Today's Communication / Plan
-
Continue IV diuresis for another 24 hours
Likely can transition to PO in AM
Follow up arranged
Impression / Plan
-
PCP: Dequan Boothe at [facility] [phone]
Director Digital Strategy: Dr. Vidal
Impression:
Presented with SOB, weight gain
Acute on chronic HFpEF
CKD 3a
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
PAD
HTN
Hyperlipidemia
PAD
aorta bypass and fem-pop bypass 05/21/90
aorto-fem bypass and fasciotomy 02/2010
aorto-fem and fem-fem bypass 01/08/13
removal of infected left axillary graft 01/25/13
Chronic Plavix therapy
Echo 09/26/23: [place] study, EF 55-60%, aortic sclerosis without stenosis, mild MR, RV moderately dilated and mildly reduced RV systolic function, mild to mod pulmonic regurgitation and mild to mod TR, small localized pericardial effusion without
hemodynamic compromise
Echo 11/28/2023: EF 55%, mild cLVH, flattened septum in systole and diastole consistent with RV pressure and volume overload, stage II diastolic dysfunction, mild MR, aortic sclerosis without stenosis, mild TR, estimated PAP 35-40 mmHg, small to
moderate pericardial effusion located predominantly around the inferolateral wall with no evidence of chamber collapse.
Plan:
-Presented with worsening shortness of breath over the past week with increased O2 requirements.
-Continue diuresing with IV lasix 40mg daily for now, although likely can transition to PO lasix 40mg daily in AM.
-Weight down 2lbs overnight to 141 lbs. Down 7lbs this admission. Prior dry weight 138lbs.
-Creat stable at 1.3, continue to follow.
-She has history of labile BPs which has limited medical therapy. Previously needed to stop losartan.
-Jardiance 10mg daily started and is affordable at $35/month.
-Echo 11/28/2023 showed EF was preserved with evidence of volume overload, small to moderate pericardial effusion noted.�
-On 4L NC. Chronically on 3-4L. Pulmonology following for ILD.
-Continue plavix and lipitor.
-K 3.4, started on KCL 20meq daily.
-Follow up arranged.
HPI: Bre is a 73 year old female with PMH of chronic HFpEF, CKD, ILD on chronic O2, PAD, HLD, and PAD who presented to [facility] for evaluation of worsening shortness of breath. She reports a week or so ago she had a viral illness and since that
time, she has noted a slow, steady increase in her SOB and oxygen requirements. She typically is on 3-4L, however has increased to 4-5 L and she has not even been able to walk short distances without becoming short of breath. Her helps her
around the house and they have been eating a lot of heat up meals, however states they use heart healthy meals that are lower in sodium. She also was drinking Powerade, but after speaking to cardiology office, they discontinued this. She reports she
has been following her weight at home and her weight has gone up approximately 10lbs over the past month. Her prior dry weight was 138 lbs and she has now been weighing closer to 148 at home. She states over the past few days she has not had any
significant urine output after taking her usual 20mg of lasix in AM and PM. In ER, she was found to have evidence of acute heart failure on exam and by chest xray and labs. She was started on IV lasix and has had good urine output. She has been
admitted for further management and cardiology consulted for evaluation.
Progress Note - Director Digital Strategy
Subjective
Date of Service: December 01, 2023
Breathing improving, feeling better.
Objective
Labs:
11/30/23 05:43
Labs
Hgb 12.2 g/dL (12.0-16.0) 11/30/23 05:43
Hct 39.1 % (37.0-47.0) 11/30/23 05:43
Plt Count 281 10^3/uL (130-400) 11/30/23 05:43
Sodium 134 mmol/L (135-145) L 11/30/23 05:43
Potassium 3.8 mmol/L (3.5-5.1) 11/30/23 05:43
BUN 25 mg/dl (7-17) H 11/30/23 05:43
Creatinine 1.3 mg/dL (0.6-1.0) H 11/30/23 05:43
Glucose 99 mg/dl (70-99) 11/30/23 05:43
Vital Signs and I&O:
Vital Signs
Temp Pulse Resp BP Pulse Ox
97.9 F 70 18 133/81 96
12/01/23 07:00 12/01/23 07:45 12/01/23 07:45 12/01/23 07:00 12/01/23 07:45
Vital Signs
Temp Pulse Resp BP Pulse Ox
97.9 F 70 18 133/81 96
12/01/23 07:00 12/01/23 07:45 12/01/23 07:45 12/01/23 07:00 12/01/23 07:45
Intake & Output
11/29/23 11/30/23 12/01/23 12/02/23
06:59 06:59 06:59 06:59
Intake Total 1020 / 1020 480 / 480 1470 / 1470
Output Total 2200 / 2200 1850 / 1850 2250 / 2250
Balance -1180 / -1180 -1370 / -1370 -780 / -780
Physical Exam
Physical Exam
GEN: No distress, awake, alert, oriented x3
HEENT: supple, anicteric, mmm
LUNGS: CTA b/l, no wheezes/rales
CV: Reg, S1/S2, 1/6 apical holosystolic murmur, no rubs.
ABD: soft, BS+, NT/ND
EXT: No clubbing, cyanosis, or edema
NEURO: Gross non-focal
SKIN: Warm, dry, no rash
[2023-12-01 08:59] LABS: Blood Urea Nitrogen 23 mg/dl (7-17); Calcium 8.9 mg/dl (8.4-10.2); Carbon Dioxide 30 mmol/L (22-30); Chloride 95 mmol/L (98-107); Estimated Creatinine Clearance 30 ml/min; Glucose 88 mg/dl (70-99); Potassium 3.4 mmol/L (3.5-5.1); Sodium 136 mmol/L (135-145); eGFR 42.88
--- NOTE | 2023-12-01 09:09 | W.PN.HOSP.TC ---
Today's Communication/Plan
-
add KCL and continue IV Lasix
DC planning to SNF
Assessment / Plan
Assessment / Plan
Assessment:
Acute on chronic hypoxic respiratory failure
- baseline 3-4L, currently on 4L NC
- wean O2 as treatment plan evolves
Acute on chronic HFpEF
- multiple recent admissions
- continue IV Lasix 40mg daily - requires intensive monitoring
Echo 09/26/23: [place] study, EF 55-60%, aortic sclerosis without stenosis, mild MR, RV moderately dilated and mildly reduced RV systolic function, mild to mod pulmonic regurgitation and mild to mod TR, small localized pericardial effusion without
hemodynamic compromise
- [facility] cardiology following
hypokalemia - add daily KCL
Heartburn intermittent nausea/vomiting in setting of OFEV
- abd exam benign
- continue PPI
- prn Carafate if recurrence
Hx of Essential HTN, with labile HTN
CKD stage 3a
- monitor Cr as diuresis continues
ILD - O2 dependant
- on OFEV
- [facility] following and pt will transition care to their office, outpatient PFTs planned
PAD
HLD
- statin/Plavix
Constipation
- Miralax, Senna/Colace; large BM 11/29
DVT ppx: SC Heparin
Code: Full
Anticipated Discharge: 24 - 48 hours
Subjective/Interval History
-
Date of Service: December 01, 2023
weight further down 2kg
denies any new complaints
Objective Data
-
Labs:
Laboratory Results
12/01/23
06:30
Sodium 136
Potassium 3.4 L
Chloride 95 L
Carbon Dioxide 30
BUN 23 H
Creatinine 1.3 H
Glucose 88
Calcium 8.9
Vital Signs:
Vital Signs
Temp Pulse Resp BP Pulse Ox
97.9 F 70 18 133/81 96
12/01/23 07:00 12/01/23 07:45 12/01/23 07:45 12/01/23 07:00 12/01/23 07:45
I&O
11/30/23 12/01/23 12/02/23
06:59 06:59 06:59
Intake Total 480 / 480 1470 / 1470
Output Total 1850 / 1850 2250 / 2250
Balance -1370 / -1370 -780 / -780
Physical Exam
-
General: No Apparent Distress
HEENT: Normocephalic and Atraumatic
Respiratory: Negative Wheezes or Rales
Cardiac: Regular Rhythm and S1/S2
GI: Soft and Nontender
Genito-urinary: No Costovertebral Tender
Neuro: AO x 3
Hematologic / Lymphatic: No Lymphadenopathy
Psych: Calm
Data Reviewed
-
Total Time Spent with Patient (in minutes): 45
Labs: Labs Reviewed by me
--- NOTE | 2023-12-01 09:32 | W.HF.CON ---
Heart Failure
- LV Function
Left ventricular function study result: LV Ejection fraction >40%
Ejection Fraction Percentage: 55
- ARNI
Patient already on ARNI: No
Heart Failure ARNI Not Indicated: LV Ejection Fraction >/= 40%
- ACEI/ARB
Patient already on ACEI/ARB: No
Heart Failure ACEI/ARB Not Indicated: LV Ejection Fraction > 40%
- Beta Law
Patient already on Evidence Based Beta Law: No
Heart Failure Evidence Based Beta Law Not Indicated: LV Ejection Fraction > 40%
- Mineralocorticord Receptor Antagonist
Patient already on MRA: No
Heart Failure MRA Not Indicated: LV Ejection Fraction > 40%
- SGLT-2 Inhibitor
Patient already on SGLT-2 Inhibitor: Yes
- NYHA CHF Classification
NYHA CHF Classification Level: Class III - Symptoms w/ min exertion, interferes w/ nml daily activity (on home oxygen)
- ACC/AHA Stage
ACC/AHA Stage: Stage C: Symptomatic Heart Failure
[2023-12-01] MEDS: LASIX 40 MG IV (10:01)
[2023-12-01] MEDS: HEPARIN 5000 UNITS SC ×2 (10:02→20:17)
[2023-12-01] MEDS: PROTONIX 40 MG PO ×2 (10:02→20:19)
[2023-12-01] MEDS: MIRALAX 17 GRAMS PO (10:04)
[2023-12-01] MEDS: KCL 20 MEQ PO (10:04)
[2023-12-01] MEDS: NON-FORMULARY ITEM 100 MG PO ×2 (10:04→20:16)
[2023-12-01] MEDS: JARDIANCE 10 MG PO (10:05)
[2023-12-01] MEDS: SENOKOT-S PO ×2 (10:06→20:20)
[2023-12-01 11:35] VITALS: PULSE 95; O2SAT 94
[2023-12-01 12:31] VITALS: PULSE 96; O2SAT 95
--- NOTE | 2023-12-01 13:41 | CM ---
Patient seen at bedside, with . Patient agreed they could provide inhallers and specialized medication as requested by [facility], update provided to Admissions. Awaiting confirmation of acceptance. CM will continue to follwo for discharge planning
needs.
plan; SNF
[2023-12-01 15:00] VITALS: BP 125/71
--- NOTE | 2023-12-01 15:01 | W.PN.PUL3 ---
Today's Communication / Plan
-
O2
Ofev
BDs
Assessment
-
Patient is a 73 year old F with h/o chronic HFpEF, Labile HTN, CKD 3a, O2 dependant ILD, PAD, HLD presents to the ER with shortness of breath. Patient reports being discharged from [facility] 1 month ago for CHF admission. Had been doing well post
discharge but notes change in the past 7-10 days. Reports worsening exercise tolerance and higher O2 requirements, 4-5L consistently. Adm again for [facility]. Patient requesting Pulmonary eval. She would like to transition to for her care,
previously seen by [facility].
[facility], proBNP [phone]
Acute on chronic hypoxic respiratory failure
Mild leukocytosis
NEREYDA
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
Chronic HFpEF
CKD 3a
PAD
Chronic bronchitis�
IPF�on Of
Home O2 use of 3L
Followed at [facility] prior/not on transplant list
HTN
HLD
Vascular disease� �
[facility]: Bypass� � 2012� �
[facility]: bypass s/p hernia repair complications� � 2009� ��
Plan
Hypoxemia noted on arrival, O2 tod 86%, she was placed on 5L
Baseline use of 3L during day, 2L at night (per records)
Prior history of lung disease is noted including IPF on Of/had been following at [facility]
Mild ILD disease noted on imaging, no comparisons
Continue ofev
No suspicion for ILD flare
Suspect patient has underlying CHF
CXR obtained indicating possible CHF superimposed on chronic ILD changes
Other imaging reports reviewed, consistent with IPF
Repeat CXR 11-30 with similar findings compared to prior from 11/27 with chronic interstitial changes and retrocardiac opacification
ECHO reports reviewed indicating new RV dysfunction compared to prior testing in 2021
Agree with diuresis
Cards following
Repeat TTE shows flattened septum in systole and diastole consistent with RV �pressure and volume overload -->diuresing
Will need outpatient pulmonary evaluation in our office for PFTs and 6MWT
Wants to transition care from [facility] to [facility]
No prior PFTs for review, will request records as OP
Continue symbicort and prn albuterol HFA/nebs prn
Return to breo (fluticasone/vilanterol) upon d/c
Cards following, continue diuretic
Awaiting SNF placement
Pulm mckinnon stable for above
Diagnostic Data
CXR 11-28-2023: Stable exam. Findings most consistent with chronic pulmonary fibrosis; Cardiomegaly
CXR 11/27/23- IMPRESSION: No acute disease of the chest. Stable findings suggesting mild pulmonary fibrosis. Mild cardiomegaly. Stable
10/14/23- Bilateral interstitial opacities suggesting a chronic interstitial lung disease/pulmonary fibrosis versus mild pulmonary vascular congestion.
ECHO at [facility] 02/2022: LV size is normal, EF 50-55%, mild conc LVH, grade I DD. RV size/func normal. mild diffuse thickening of aortic valve
ECHO 09/26/23: normal function EF 55-60%, grade I DD. w/o stenosis, mild MR, RV moderately dilated with mildly reduced systolic function, RVSP 48. Mild-mod DC, mild-mod TR, RA moderately dilated, small localized pericardial effusion
CT chest 09/25/23 - no acute PE; lungs show chronic changes of fibrosis/honeycombing
Subjective Data
-
Date of Service:
Date of Service: December 01, 2023
Chief Complaint: Pulmonary Follow Up
Subjective:
No major events reported
Reports pulm improvement
Review of Systems
General: Fever (n), Sweats (n), Chills (n) and Satisfactory Appetite
HEENT: Epistaxis (n) and Dysphagia
Cardiopulmonary: Dyspnea on Exertion, Cough, Sputum Production (n), Wheezing (n) and Chest Pain
GI: Abdominal Pain (n), Nausea (n) and Vomiting (n)
Neuro: Weakness (n)
Objective Data
Data Reviewed
Vital Signs / I&O / Oxygen:
Vital Signs
Temp Pulse Resp BP Pulse Ox
97.9 F 70 18 133/81 96
12/01/23 07:00 12/01/23 07:45 12/01/23 07:45 12/01/23 07:00 12/01/23 07:45
Intake and Output
11/30/23 12/01/23 12/02/23
06:59 06:59 06:59
Intake Total 480 / 480 1470 / 1470
Output Total 1850 / 1850 2250 / 2250
Balance -1370 / -1370 -780 / -780
SaO2 96
Nasal Cannula flow liters per 4
minute
Physical Exam
General: Comfortable and Other (NAD)
HEENT: Normocephalic, Anicteric and Moist Mucous Membranes
Cardiovascular: S1-S2, Regular Rhythm and Peripheral Edema (negative)
Respiratory: Wheeze (Negative), Crackles (Bilateral (more wet the left mid-lung)), Rhonchi (negative), Non-Labored Respirations and Stridor (negative)
GI: Soft, Non Distended, Non Tender and Normal Bowel Sounds
Neurology: AO x 3 and No Motor Deficits
Skin: Warm, Dry and Good Color
Labs/Micro/Reports
Lab Data
11/30/23 05:43
12/01/23 06:30
[2023-12-01] MEDS: LIPITOR 40 MG PO (16:53)
[2023-12-01] MEDS: PLAVIX 75 MG PO (16:53)
[2023-12-01] MEDS: LEXAPRO 10 MG PO (17:04)
[2023-12-01 23:37] VITALS: BP 133/72
[2023-12-02 06:00] VITALS: BMI 25.6
[2023-12-02 07:00] VITALS: BP 141/76
[2023-12-02] MEDS: SYMBICORT 80/4.5 MCG INHALER 2 PUFF INH (07:12)
[2023-12-02 07:37] LABS: Blood Urea Nitrogen 19 mg/dl (7-17); Carbon Dioxide 33 mmol/L (22-30); Chloride 95 mmol/L (98-107); Estimated Creatinine Clearance 32 ml/min; Glucose 93 mg/dl (70-99); Potassium 3.4 mmol/L (3.5-5.1); Sodium 136 mmol/L (135-145); eGFR 47.21
[2023-12-02] MEDS: NON-FORMULARY ITEM 100 MG PO (09:14)
[2023-12-02] MEDS: SENOKOT-S PO (09:15)
[2023-12-02] MEDS: JARDIANCE 10 MG PO (09:15)
[2023-12-02] MEDS: LASIX 40 MG IV (09:15)
[2023-12-02] MEDS: KCL 40 MEQ PO (09:15)
[2023-12-02] MEDS: HEPARIN 5000 UNITS SC (09:15)
[2023-12-02] MEDS: PROTONIX 40 MG PO (09:15)
[2023-12-02] MEDS: MIRALAX PO (09:15)
--- NOTE | 2023-12-02 11:31 | CM ---
MD indicated patient ready for discharge.
Spoke with Sofía from [facility] she indicated pt will need to bring Olev and inhalers to SNF.
Pt on 4 liters of oxygen .
Spoke with patients Bruce he said he has meds. and will bring to [place].
has [employer] in car . He said he will transport her to [facility].
IMM reviewed and agreed with dc today.
[facility]
report [phone]
fax [phone]
PLAN To [facility] today
--- NOTE | 2023-12-02 12:15 | W.PN.HOSP.TC ---
Today's Communication/Plan
-
dc to SNF
Assessment / Plan
Assessment / Plan
Assessment:
Acute on chronic hypoxic respiratory failure
- baseline 3-4L, currently on 4L NC
- wean O2 as treatment plan evolves
Acute on chronic HFpEF
- multiple recent admissions
- s/p IV Lasix course, now dc on Lasix 40mg daily PO
Echo 09/26/23: [place] study, EF 55-60%, aortic sclerosis without stenosis, mild MR, RV moderately dilated and mildly reduced RV systolic function, mild to mod pulmonic regurgitation and mild to mod TR, small localized pericardial effusion without
hemodynamic compromise
- [facility] cardiology following
hypokalemia - continue daily KCL
Heartburn intermittent nausea/vomiting in setting of OFEV
- abd exam benign
- continue PPI
- prn Carafate if recurrence
Hx of Essential HTN, with labile HTN
CKD stage 3a
- monitor Cr as diuresis continues
ILD - O2 dependant
- on OFEV
- [facility] following and pt will transition care to their office, outpatient PFTs planned
PAD
HLD
- statin/Plavix
Constipation
- Miralax, Senna/Colace; large BM 11/29
DVT ppx: SC Heparin
Code: Full
More than 30 minutes spent in discharge including
Final examination of the patient
Summarizing hospital stay
Instructions for continuing care to all relevant caregivers
Preparation of discharge records, prescriptions, and referral forms
Total time spent (in minutes): 41
Anticipated Discharge: Today
Subjective/Interval History
-
Date of Service: December 02, 2023
no complaints
for SNF transfer today
Objective Data
-
Labs:
Laboratory Results
12/02/23
06:25
Sodium 136
Potassium 3.4 L
Chloride 95 L
Carbon Dioxide 33 H
BUN 19 H
Creatinine 1.2 H
Glucose 93
Calcium 9.0
Vital Signs:
Vital Signs
Temp Pulse Resp BP Pulse Ox
97.8 F 68 20 141/76 92
12/02/23 07:00 12/02/23 09:05 12/02/23 09:05 12/02/23 07:00 12/02/23 09:05
I&O
12/01/23 12/02/23 12/03/23
06:59 06:59 06:59
Intake Total 1470 / 1470 720 / 720
Output Total 2250 / 2250 1450 / 1450
Balance -780 / -780 -730 / -730
Physical Exam
-
General: No Apparent Distress
HEENT: Normocephalic and Atraumatic
Respiratory: Negative Wheezes or Rales
Cardiac: Regular Rhythm and S1/S2
GI: Soft and Nontender
Musculoskeletal: No Edema
Neuro: AO x 3
Hematologic / Lymphatic: No Lymphadenopathy
Psych: Calm
Data Reviewed
-
Total Time Spent with Patient (in minutes): 41
Labs: Labs Reviewed by me
--- NOTE | 2023-12-02 12:41 | W.PN.CARDCBS ---
Today's Communication / Plan
-
Changed to Lasix 40 mg daily and sign off
Impression / Plan
-
PCP: Dequan Boothe at [facility] [phone]
Landmen: Dr. Vidal
Impression:
Presented with SOB, weight gain
Acute on chronic HFpEF
CKD 3a
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
PAD
HTN
Hyperlipidemia
PAD
aorta bypass and fem-pop bypass 05/21/90
aorto-fem bypass and fasciotomy 02/2010
aorto-fem and fem-fem bypass 01/08/13
removal of infected left axillary graft 01/25/13
Chronic Plavix therapy
Echo 09/26/23: [place] study, EF 55-60%, aortic sclerosis without stenosis, mild MR, RV moderately dilated and mildly reduced RV systolic function, mild to mod pulmonic regurgitation and mild to mod TR, small localized pericardial effusion without
hemodynamic compromise
Echo 11/28/2023: EF 55%, mild cLVH, flattened septum in systole and diastole consistent with RV pressure and volume overload, stage II diastolic dysfunction, mild MR, aortic sclerosis without stenosis, mild TR, estimated PAP 35-40 mmHg, small to
moderate pericardial effusion located predominantly around the inferolateral wall with no evidence of chamber collapse.
Plan:
She is difficult examination but is likely euvolemic
Weight is 140 pounds on 12/02 and dry weight has been reported to be 138 pounds in the past
We will change to Lasix 40 mg daily
On 4L NC. Chronically on 3-4L. Pulmonology following for ILD.
Continue plavix and lipitor.
K 3.4, started on KCL 20meq daily on 12/01.
Will sign off, call with question
HPI: Bre is a 73 year old female with PMH of chronic HFpEF, CKD, ILD on chronic O2, PAD, HLD, and PAD who presented to [facility] for evaluation of worsening shortness of breath. She reports a week or so ago she had a viral illness and since that
time, she has noted a slow, steady increase in her SOB and oxygen requirements. She typically is on 3-4L, however has increased to 4-5 L and she has not even been able to walk short distances without becoming short of breath. Her helps her
around the house and they have been eating a lot of heat up meals, however states they use heart healthy meals that are lower in sodium. She also was drinking Powerade, but after speaking to cardiology office, they discontinued this. She reports she
has been following her weight at home and her weight has gone up approximately 10lbs over the past month. Her prior dry weight was 138 lbs and she has now been weighing closer to 148 at home. She states over the past few days she has not had any
significant urine output after taking her usual 20mg of lasix in AM and PM. In ER, she was found to have evidence of acute heart failure on exam and by chest xray and labs. She was started on IV lasix and has had good urine output. She has been
admitted for further management and cardiology consulted for evaluation.
Progress Note - Landmen
Subjective
Date of Service: December 02, 2023
She is without complaints.
Objective
Labs:
11/30/23 05:43
12/02/23 06:25
Labs
Hgb 12.2 g/dL (12.0-16.0) 11/30/23 05:43
Hct 39.1 % (37.0-47.0) 11/30/23 05:43
Plt Count 281 10^3/uL (130-400) 11/30/23 05:43
Sodium 136 mmol/L (135-145) 12/02/23 06:25
Potassium 3.4 mmol/L (3.5-5.1) L 12/02/23 06:25
BUN 19 mg/dl (7-17) H 12/02/23 06:25
Creatinine 1.2 mg/dL (0.6-1.0) H 12/02/23 06:25
Glucose 93 mg/dl (70-99) 12/02/23 06:25
Vital Signs and I&O:
Vital Signs
Temp Pulse Resp BP Pulse Ox
97.8 F 68 20 141/76 92
12/02/23 07:00 12/02/23 09:05 12/02/23 09:05 12/02/23 07:00 12/02/23 09:05
Vital Signs
Temp Pulse Resp BP Pulse Ox
97.8 F 68 20 141/76 92
12/02/23 07:00 12/02/23 09:05 12/02/23 09:05 12/02/23 07:00 12/02/23 09:05
Intake & Output
11/30/23 12/01/23 12/02/23 12/03/23
06:59 06:59 06:59 06:59
Intake Total 480 / 480 1470 / 1470 720 / 720
Output Total 1850 / 1850 2250 / 2250 1450 / 1450
Balance -1370 / -1370 -780 / -780 -730 / -730
Physical Exam
Physical Exam
General: Well developed, well nourished in NAD.
Neck: Supple, no JVD, HJR, carotids +2 B/L, no bruits bilaterally.
Heart: Non displaced PMI, RRR, no murmurs, No S3, S4, no rubs.
Lungs: Scattered rhonchi
Extremities: No clubbing, cyanosis or edema bilaterally.
Neuro: Grossly nonfocal, awake, alert and oriented x3.
--- NOTE | 2023-12-02 12:53 | W.DS.TRANS ---
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
-
Discharge Instructions:
Sleep Apnea Risk Low
Discharge Diagnosis/Procedures Acute on chronic hypoxic respiratory failure,
acute CHF
Diet 2 Gram Sodium,Restrict fluids to 48 oz
Activity As tolerated
Bathing Restrictions None
Blood Work repeat BMP in 3-5 at [facility]
Instructions: *[facility] Heart Failure Instructions
Stand-Alone Forms:
Changes to Home Medications: Yes
Discharge Medications:
DC Medications w/original date entered in Remote Assistant
acetaminophen 500 mg tablet (Tylenol Extra Strength) 1,000 mg PO BIDPRN PRN mild pain 10/14/23
albuterol sulfate 90 mcg/actuation aerosol inhaler 2 puff inhalation R Q6HPRN PRN wheezing 10/14/23
atorvastatin 40 mg tablet 40 mg PO QPM High Cholesterol 10/14/23
cholecalciferol (vitamin D3) 25 mcg (1,000 unit) tablet 25 mcg PO QPM Supplement 10/14/23
clopidogrel 75 mg tablet 75 mg PO QPM Blood Clot Prevention/Tx 10/14/23
escitalopram oxalate 10 mg tablet 10 mg PO QPM Mental Health 10/14/23
fluticasone furoate 100 mcg-vilanterol 25 mcg/dose inhalation powder (Breo Ellipta) 1 inh inhalation R DAILY Lung/Breathing Issues 10/14/23
nintedanib 100 mg capsule (Ofev) 100 mg PO BID Lung/Breathing Issues 10/14/23
pantoprazole 40 mg tablet,delayed release 40 mg PO BID Gastrointestinal Issue 10/14/23
empagliflozin 10 mg tablet (Jardiance) 10 mg PO DAILY #30 tabs 12/02/23
furosemide 40 mg tablet 40 mg PO DAILY #30 tabs 12/02/23
polyethylene glycol 3350 17 gram oral powder packet (HealthyLax) 17 g PO DAILY #30 ea 12/02/23
potassium chloride 20 mEq tablet,extended release(part/cryst) 40 meq PO DAILY #30 tabs 12/02/23
Home Medication Changes
Lasix to 40mg daily, KCL added
Pending Results: No
Total time spent discharging patient (in min): 41
== END 2023-12-02 13:51 | DRG 291 ==
LOC: 4 EAST ACU 14:01
PROVIDERS: ADMITTING PHYSICIAN Internal Medicine; CONSULT PHYSICIAN Internal Medicine; CONSULT PHYSICIAN Internal Medicine Cardiovascular Disease; EMERGENCY PHYSICIAN Emergency Medicine; FAMILY PHYSICIAN Family Medicine
DX: I13.0 Hypertensive heart and chronic kidney disease with heart failure and stage 1 through stage 4 chronic kidney disease, or unspecified chronic kidney disease (principal); I50.33 Acute on chronic diastolic (congestive) heart failure; J96.21 Acute and chronic respiratory failure with hypoxia; J84.9 Interstitial pulmonary disease, unspecified; N17.9 Acute kidney failure, unspecified; Z99.81 Dependence on supplemental oxygen; Z11.52 Encounter for screening for COVID-19; Z87.891 Personal history of nicotine dependence; N18.31 Chronic kidney disease, stage 3a; I73.9 Peripheral vascular disease, unspecified; Z79.02 Long term (current) use of antithrombotics/antiplatelets; E78.00 Pure hypercholesterolemia, unspecified; K59.00 Constipation, unspecified; E87.6 Hypokalemia; J84.10 Pulmonary fibrosis, unspecified
CPT/HCPCS: 71046; 80048; 80053; 83735; 83880; 84484; 85025; 85027; 87502; 87811; 93005; 93306; 94640; 96374; 97116; 97162; 97165; 97530; 97535; 99285

== ENCOUNTER → 2023-12-05 09:25 | Outpatient (REF) | payer OTHER, BC, MEDICARE, SELFPAY ==
[2023-12-05 11:51] LABS: Blood Urea Nitrogen 18 mg/dl (7-17); Calcium 9.3 mg/dl (8.4-10.2); Carbon Dioxide 28 mmol/L (22-30); Chloride 99 mmol/L (98-107); Glucose 98 mg/dl (70-99); Potassium 4.5 mmol/L (3.5-5.1); Sodium 135 mmol/L (135-145); eGFR 47.21
== END ==
LOC: OLABP 09:25
PROVIDERS: ATTENDING PHYSICIAN Student in an Organized Health Care Education/Training Program
DX: I50.31 Acute diastolic (congestive) heart failure (principal); J96.01 Acute respiratory failure with hypoxia
CPT/HCPCS: 36415; 80048

== ENCOUNTER 2023-12-15 21:56 | Emergency (ER) | payer BC, MEDICARE, SELFPAY ==
[2023-12-15 22:10] LABS: % Basophils 0.8 % (0-2); % Eosinophils 3.6 % (0-6); % Immature Granulocytes 2.7 % (0-0.5); % Lymphocytes 56.8 % (20.5-51.1); % Monocytes 5.8 % (1.7-9.3); % Neutrophils 30.3 % (42.2-75.2); Absolute Basophils 0.2 10^3/uL (0-0.2); Absolute Eosinophils 0.7 10^3/uL (0-0.7); Absolute Immature Granulocytes 0.5 10^3/uL (0-0.05); Absolute Lymphocytes 11.1 10^3/uL (1.2-3.4); Absolute Monocytes 1.1 10^3/uL (0.1-0.6); Absolute Neutrophils 5.9 10^3/uL (1.4-6.5); Hematocrit 40.8 % (37.0-47.0); Hemoglobin 11.8 g/dL (12.0-16.0); Mean Corp Hgb Conc. 28.9 g/dL (33.0-37.0); Mean Corpuscular Hgb 25.1 pg (27.0-31.0); Mean Corpuscular Volume 86.6 fL (81.0-99.0); Mean Platelet Volume 10.6 fL (7.4-10.4); Nucleated Red Blood Cells % 0.6 %; Platelet Count 145 10^3/uL (130-400); Red Blood Cell Count 4.71 10^6/uL (4.20-5.40); White Blood Cell Count 19.6 10^3/uL (4.8-10.8)
[2023-12-15 22:33] LABS: Troponin I 0.054 ng/ml
--- NOTE | 2023-12-16 03:38 | EDRN ---
patient took all jewelry home - 2 rings and earrings
== END 2023-12-15 22:00 | disposition expired ==
LOC: EMR 21:56
PROVIDERS: EMERGENCY PHYSICIAN Emergency Medicine
DX: I46.9 Cardiac arrest, cause unspecified (principal)
CPT/HCPCS: 99291; 31500; 84484; 85025